=== PATIENT | male | born 1945 | race Caucasian/White ===

== ENCOUNTER 2017-04-20 08:34 | Inpatient (IN) | payer OTHER, BC ==
[~2017-04-20] VITALS: Ht 177.8 cm; Wt 97.5 kg
[~2017-04-20 08:34] MED LIST: ASPIRIN325 PO; BENZONATATE100 MG PO; ENOXAPARIN100 MG/11 SUBQ; FLUCONAZOLE 10100 MG PO; HYDROCODON-ACE1 EAC7 PO; HYDROCODONE-AP1 EAC6 PO; LEVAQUIN 500 M500 M2 PO; LISINOPRIL-HCT1 EAC2 PO; METAMUCIL PAC1 UDPKT PO; NIACIN 500 MG500 M1 PO; PRADAXA150 MG PO; PRADAXA75 MG PO; VANCOMYCIN100 MG/M1 PO
[2017-04-20 08:35] VITALS: BP 101/67
[2017-04-20] MEDS ORDERED: LISINOPRIL20 MG PO (08:45)
[2017-04-20] MEDS ORDERED: NORCO 5-325 TA1 EACH PO (09:12)
[2017-04-20] MEDS ORDERED: FLEXERIL PO (09:17)
[2017-04-20 10:12] VITALS: BP 101/67
[2017-04-20 10:21] LABS: URINE BILIRUBIN NEGATIVE (Negative); URINE BLOOD NEGATIVE (Negative); URINE COLOR YELLOW; URINE GLUCOSE-RANDOM* NEGATIVE (Negative); URINE KETONES NEGATIVE (Negative); URINE NITRITE NEGATIVE (Negative); URINE PROTEIN (DIPSTICK) NEGATIVE (Negative); URINE UROBILINOGEN 0.2 E.U./dl (0.2-1.0)
[2017-04-20 10:26] VITALS: BP 139/82
[2017-04-20 10:36] LABS: ABSOLUTE NEUTROPHILS 4.4 thou/uL (1.4-8.2); BASOPHILS 0.6 % (0.0-2.0); HEMATOCRIT 44.3 % (42.0-52.0); HEMOGLOBIN 15.6 gm/dL (14.0-18.0); LYMPHOCYTES 23.4 % (24.0-44.0); MCHC 35.2 g/dL (28.0-37.0); MCV 93.7 fL (80.0-100.0); MONOCYTES 6.9 % (1.0-8.0); PLATELET COUNT 227 thou/uL (150-400); POLYS 67.1 % (36.0-66.0); RBC 4.73 mil/uL (4.50-6.00); RDW 12.3 % (10.5-14.5); WBC 6.6 thou/uL (4.0-11.0)
[2017-04-20 10:48] LABS: CALCIUM 9.5 mg/dL (8.5-10.1); CREATININE 1.3 mg/dL (0.7-1.3); POTASSIUM 4.3 mmol/L (3.5-5.1)
[2017-04-20 10:52] LABS: MANUAL DIFF NO
[2017-04-20 21:08] VITALS: BP 141/73
[2017-04-21 04:48] VITALS: BP 121/77
[2017-04-21] MEDS ORDERED: PERCOCET PO (08:15)
[2017-04-21] MEDS ORDERED: VALIUM5 MG PO (08:16)
[2017-04-21] MEDS ORDERED: PREDNISONE 10 M10 MG PO (08:17)
[2017-04-21 08:37] VITALS: BP 125/85
[2017-04-21 10:08] VITALS: BP 121/77
[2017-04-21 11:55] VITALS: BP 121/77
== END 2017-04-21 11:10 | disposition home or self-care (01) | DRG 543 ==
LOC: ER 08:34 → EROBS 09:39 → 4N 10:35
PROVIDERS: Emergency Medicine
DX: C79.51 Secondary malignant neoplasm of bone (principal); C34.90 Malignant neoplasm of unspecified part of unspecified bronchus or lung; C79.70 Secondary malignant neoplasm of unspecified adrenal gland; M48.8X6 Other specified spondylopathies, lumbar region; I10 Essential (primary) hypertension; G47.30 Sleep apnea, unspecified; Z87.891 Personal history of nicotine dependence; Z86.711 Personal history of pulmonary embolism; R59.9 Enlarged lymph nodes, unspecified
CPT/HCPCS: 10091

== ENCOUNTER → 2017-04-24 | Outpatient (CLI) | payer OTHER, BC ==
[~2017-04-24] VITALS: Ht 180.3 cm; Wt 96.2 kg
[2017-04-24] VITALS (11 sets, daily range): BP systolic 122–169; BP diastolic 68–111
[~2017-04-24] MED LIST changes: +FLEXERIL PO; +LISINOPRIL20 MG PO; +NORCO 5-325 TA1 EACH PO; +PERCOCET PO; +PREDNISONE 10 M10 MG PO; +VALIUM5 MG PO
--- NOTE | ~2017-04-24 | S ---
[facility] [address] [place] [address] SURGICAL PATH RPT PROCEDURE Name: DAMONBRAD [id number] Admission: 04/24/17 Date of : 49 Discharge: Report #: [id number] Path Case #: [id number] PATHOLOGY REPORT COLLECTION DATE: 04/24/2017 RECEIVED DATE: 04/24/2017 SUBMITTING PHYS: Dr. Teddy Yanes OTHER PHYS: ADDENDUM REPORT (Order Date: 04/30/2017 10:17) ADDENDUM COMMENT: Immunoperoxidase stains for p63 and p40 are both negative. 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 The immunoperoxidase thrombomodulin is focally positive. (SHA:ilana; 04/30/2017) Professional services performed under supervision of [facility] Automotive Engineering Teacher at [address] [place] [address]. Technical services performed by [facility] under supervision of a [facility] Teacher at [address] [place] [address], [address] [place] [address]. ELECTRONICALLY SIGNED BY: Wilbert Cintron M.D. DATE/TIME:04/30/2017 10:57 SPECIMEN(S) RECEIVED: A.L1 mass lumbar * * * * * * * * * * * * FINAL DIAGNOSIS: Bone, "L-1 mass lumbar": - METASTATIC POORLY DIFFERENTIATED NON-SMALL CELL CARCINOMA. COMMENT: Immunoperoxidase stains were performed and reveal the following results: AE1/AE3: positive PSA-P: negative PSA: negative CK7: positive CK20: negative CDX-2: negative S-100: negative CD68: stains histiocytes. TTF1: negative Primaries include lung, upper respiratory and possible lower genitourinary. With a history of lung mass and hilar adenopathy [facility] [address] [place] [address] SURGICAL PATH RPT PROCEDURE Name: BRAD DAMON [facility] [id number] Admission: 04/24/17 Date of : 49 Discharge: Report #: [id number] Path Case #: [id number] findings are compatible with lung. Absence of PSA and PSAP excludes prostate and absence of CDX2 and CK20 makes colon unlikely. Suggest clinical correlation. This case is also reviewed by Dr. Karolyn Flores. Dr. Teddy Yanes was informed of the diagnosis on 04/27/2017 at 1pm Additional immunostains p63, P40 and thrombomodulin are being done to see if the tumor is squamous or adenocarcinoma. (SHA:mgr; 04/26/2017) PATHOLOGIST: Wilbert Cintron M.D. REPORT ELECTRONICALLY SIGNED BY: Wilbert Cintron M.D. DATE/TIME: 04/27/2017 13:25 * * * * * * * * * * * * GROSS PATHOLOGY: The specimen is received in formalin labeled "Brad Juan José, L-1 mass". Received are two needle cores of light grant bone measuring 0.4 and 0.7 cm in length, each measuring 0.1 cm in diameter, admixed with blood coagulum measuring 2.0 x 1.4 x 0.2 cm in aggregate dimensions. The specimen is filtered and entirely submitted in cassette A1, following light decalcification. (CAA; 04/25/2017) CLINICAL HISTORY: None provided INITIAL CPT CODE(S): A; 95488, 22867, 75541, 02101, 29783, 56248, 06048, 24812, 45306, 17296, 74579, 43452, 09021, 32555 Professional services performed by [facility] at [facility] [address], [place] [address] Technical services performed by [facility] at [address] [place] [address], [address], [place] [address]. [facility] [address] [place] [address] PHONE: [phone] DIRECTOR: Landry Jones M.D. * * * END OF REPORT * * *
== END | disposition home or self-care (01) ==
LOC: RAD 08:17
PROVIDERS: Radiology Diagnostic Radiology
DX: C79.51 Secondary malignant neoplasm of bone (principal)

== ENCOUNTER 2017-05-30 13:27 | Inpatient (IN) | payer OTHER, BC ==
[~2017-05-30] VITALS: Ht 180.3 cm; Wt 88.8 kg
[2017-05-30] VITALS (14 sets, daily range): BP systolic 78–147; BP diastolic 50–110
[2017-05-30 13:55] LABS: HEMOGLOBIN 15.3 gm/dL (14.0-18.0); MCH 31.1 pg (26.0-34.0)
[2017-05-30 14:00] LABS: ABG SAMPLE TYPE ARTERIAL; BE(vivo) 1.4 mmol/L (-2 to +3); HCO3 23.7 mmol/L (22.0-26.0); LACTATE 1.79 mmol/L (0.5-2.0); O2(CT) 20.4 mL/dL (15.0-23.0); O2Hb 92.7 % (92.0-98.0); PCO2 31.5 mmHg (35.0-45.0); PO2 67.5 mmHg (80.0-100.0); pH 7.495 (7.360-7.450); tCO2 24.7 mmol/L (24.0-30.0)
[2017-05-30 14:01] LABS: CALCIUM 9.1 mg/dL (8.5-10.1); CREATININE 1.8 mg/dL (0.7-1.3); POTASSIUM 4.6 mmol/L (3.5-5.1)
[2017-05-30 14:01] LABS: STICK SITE L.RADIAL
[2017-05-30 14:09] LABS: HEMATOCRIT 44.2 % (42.0-52.0); MANUAL DIFF YES; MCHC 34.6 g/dL (28.0-37.0); PLATELET COUNT 143 thou/uL (150-400); RBC 4.91 mil/uL (4.50-6.00); RDW 12.1 % (10.5-14.5)
[2017-05-30 14:10] LABS: WBC 0.5 thou/uL (4.0-11.0)
[2017-05-30 15:26] LABS: ABSOLUTE NEUTROPHILS 0.1 thou/uL (1.4-8.2); ANISOCYTOSIS 1+; TOTAL CELL COUNT 50
[2017-05-30 15:27] LABS: POIKILOCYTOSIS SLIGHT
[2017-05-30 17:11] LABS: URINE BILIRUBIN 2+ (Negative); URINE BLOOD TRACE (Negative); URINE GLUCOSE-RANDOM* TRACE (Negative); URINE KETONES TRACE (Negative); URINE LEUKOCYTES-REFLEX NEGATIVE (Negative); URINE PROTEIN (DIPSTICK) 1+ (Negative); URINE SPECIFIC GRAVITY 1.025 (1.003-1.035)
[2017-05-30 17:13] LABS: ICTOTEST (BILI CONFIRMATORY) Positive (Negative); URINE COLOR AMBER
[2017-05-30] MEDS ORDERED: DEXAMETHASONE 44 M1 PO (17:13)
[2017-05-30] MEDS ORDERED: FOLIC ACID1 MG PO (17:13)
[2017-05-30] MEDS ORDERED: CONSTULOSE10 GM/15 M PO (17:13)
[2017-05-30] MEDS ORDERED: ROXICODONE5 M2 PO (17:14)
[2017-05-30] MEDS ORDERED: ONDANSETRON HCL4 M2 PO (17:14)
[2017-05-30] MEDS ORDERED: MS CONTIN15 MG PO (17:15)
[2017-05-30 17:19] LABS: CRYSTALS None Seen /LPF (None Seen); SQUAMOUS 4-10 Moderate /LPF (0-3)
[2017-05-30 17:20] LABS: URINE RBC 0-2 Rare /HPF (0-2)
[2017-05-30 17:21] LABS: HYALINE CASTS 0-3 Few /LPF (None Seen); URINE WBC-REFLEX None Seen /HPF (0-5)
[2017-05-30] MEDS ORDERED: TUMS PO (17:48)
[2017-05-31] VITALS (47 sets, daily range): BP systolic 93–133; BP diastolic 32–107
[2017-05-31 05:39] LABS: MCH 31.5 pg (26.0-34.0); PLATELET COUNT 84 thou/uL (150-400); RBC 4.04 mil/uL (4.50-6.00)
[2017-05-31 05:41] LABS: HEMATOCRIT 35.9 % (42.0-52.0); MCHC 35.4 g/dL (28.0-37.0); RDW 12.1 % (10.5-14.5)
[2017-05-31 05:42] LABS: HEMOGLOBIN 12.7 gm/dL (14.0-18.0); MANUAL DIFF YES
[2017-05-31 05:44] LABS: WBC 0.5 thou/uL (4.0-11.0)
[2017-05-31 05:52] LABS: CALCIUM 8.3 mg/dL (8.5-10.1); CREATININE 1.3 mg/dL (0.7-1.3)
[2017-05-31 10:21] LABS: ABSOLUTE NEUTROPHILS 0.2 thou/uL (1.4-8.2); TOTAL CELL COUNT 100
[2017-06-01] VITALS (28 sets, daily range): BP systolic 93–136; BP diastolic 52–84
[2017-06-01 09:09] LABS: HEMATOCRIT 32.8 % (42.0-52.0); HEMOGLOBIN 11.4 gm/dL (14.0-18.0); MCH 31.7 pg (26.0-34.0); MCHC 34.9 g/dL (28.0-37.0); MCV 91.1 fL (80.0-100.0); RBC 3.6 mil/uL (4.50-6.00); RDW 12.2 % (10.5-14.5)
[2017-06-01 09:11] LABS: WBC 0.6 thou/uL (4.0-11.0)
[2017-06-02 04:02] VITALS: BP 106/67
[2017-06-02 07:37] VITALS: BP 110/74
[2017-06-02 09:27] LABS: MCV 91.3 fL (80.0-100.0)
[2017-06-02 09:29] LABS: HEMATOCRIT 31.8 % (42.0-52.0); MCH 31.5 pg (26.0-34.0); MCHC 34.5 g/dL (28.0-37.0); RBC 3.48 mil/uL (4.50-6.00); RDW 12.5 % (10.5-14.5)
[2017-06-02 09:32] LABS: MANUAL DIFF YES
[2017-06-02 11:29] LABS: TOTAL CELL COUNT 100
[2017-06-02 11:30] LABS: ABSOLUTE NEUTROPHILS 0.6 thou/uL (1.4-8.2); ANISOCYTOSIS 1+
[2017-06-02 11:31] LABS: PLATELET COUNT 40 thou/uL (150-400)
[2017-06-02 16:00] VITALS: BP 100/64
[2017-06-02 19:23] VITALS: BP 99/62
[2017-06-03 02:49] VITALS: BP 128/78
[2017-06-03 08:24] VITALS: BP 118/70
[2017-06-03 09:34] LABS: HEMOGLOBIN 10.7 gm/dL (14.0-18.0); MCH 31.3 pg (26.0-34.0); RDW 12.3 % (10.5-14.5)
[2017-06-03 09:36] LABS: HEMATOCRIT 31.2 % (42.0-52.0); MCHC 34.4 g/dL (28.0-37.0); RBC 3.43 mil/uL (4.50-6.00)
[2017-06-03 09:38] LABS: MANUAL DIFF YES
[2017-06-03 09:39] LABS: WBC 1.5 thou/uL (4.0-11.0)
[2017-06-03 10:24] LABS: ATYPICAL LYMPHS 1 %; TOTAL CELL COUNT 100
[2017-06-03 10:26] LABS: ANISOCYTOSIS 1+
[2017-06-03 10:29] LABS: PLATELET COUNT 32 thou/uL (150-400)
[2017-06-03 11:45] VITALS: BP 107/75
[2017-06-03 15:46] VITALS: BP 121/81
[2017-06-03 19:04] VITALS: BP 117/77
[2017-06-04 03:05] VITALS: BP 98/58
[2017-06-04 06:54] LABS: HEMOGLOBIN 10.7 gm/dL (14.0-18.0); RBC 3.42 mil/uL (4.50-6.00)
[2017-06-04 06:56] LABS: HEMATOCRIT 30.8 % (42.0-52.0); MCH 31.4 pg (26.0-34.0); MCHC 34.9 g/dL (28.0-37.0); PLATELET COUNT 27 thou/uL (150-400); RDW 12.3 % (10.5-14.5)
[2017-06-04 07:07] LABS: MANUAL DIFF YES
[2017-06-04 07:45] VITALS: BP 125/83
[2017-06-04 09:49] LABS: ABSOLUTE NEUTROPHILS 1.1 thou/uL (1.4-8.2); METAMYELOCYTES 2 %; MYELOCYTES 1 %; NUCLEATED RBCS 1 /100WBC; TOTAL CELL COUNT 100
[2017-06-04 09:50] LABS: ANISOCYTOSIS 2+; PLATELET ESTIMATE MARKEDLY DECREASED; POLYCHROMASIA 1+; TOXIC GRANULATION 3+
[2017-06-04 15:03] VITALS: BP 125/83
== END 2017-06-04 16:46 | disposition home or self-care (01) | DRG 180 ==
LOC: ER 13:27 → EROBS 16:08 → ICU 16:08 → 3W 06-01 20:43 → ENTRNSPT 06-04 15:55 → EDTRNSPTSTS 06-04 15:57 → 3W 06-04 16:46
PROVIDERS: Emergency Medicine; Family Medicine; Internal Medicine Hematology & Oncology
DX: C34.90 Malignant neoplasm of unspecified part of unspecified bronchus or lung (principal); N17.0 Acute kidney failure with tubular necrosis; I10 Essential (primary) hypertension; E86.0 Dehydration; D70.9 Neutropenia, unspecified; R50.81 Fever presenting with conditions classified elsewhere; D64.81 Anemia due to antineoplastic chemotherapy; Z79.899 Other long term (current) drug therapy; Z87.891 Personal history of nicotine dependence; Z86.711 Personal history of pulmonary embolism
CPT/HCPCS: 10078; 10779

== ENCOUNTER → 2018-08-05 | Outpatient (CLI) | payer OTHER, BC ==
[~2018-08-05] MED LIST changes: +CONSTULOSE10 GM/15 M PO; +DEXAMETHASONE 44 M1 PO; +FOLIC ACID1 MG PO; +MS CONTIN15 MG PO; +ONDANSETRON HCL4 M2 PO; +ROXICODONE5 M2 PO; +TUMS PO
[2018-08-05 07:43] LABS: CREATININE 1.3 mg/dL (0.7-1.3)
== END ==
LOC: CAT 06:37
PROVIDERS: Surgery
DX: I71.4 Abdominal aortic aneurysm, without rupture (principal); I70.0 Atherosclerosis of aorta; K56.609 Unspecified intestinal obstruction, unspecified as to partial versus complete obstruction; R19.5 Other fecal abnormalities; M47.816 Spondylosis without myelopathy or radiculopathy, lumbar region

== ENCOUNTER 2018-08-28 05:47 | Inpatient (IN) | payer OTHER, BC ==
[~2018-08-28] VITALS: Ht 180.3 cm; Wt 81.2 kg
--- NOTE | ~2018-08-28 | HC ---
[facility] [place] [address] CONSULTATION Name: JAMAR DAMON Room #: 419-P [facility] IN .R.#: [id number] Admission: 08/28/18 Attend Phys: Anay Tapia MD, Discharge: Date of : 49 Report #: [id number] THIS REPORT FOR: //name// CC: Anay Espinal Yanes DATE OF SERVICE: 09/02/2018 HISTORY OF PRESENT ILLNESS: The patient is a 73-year-old white male who was admitted with a small-bowel obstruction and underwent exploratory laparotomy, lysis of adhesions. He has been noted to have confusion postoperatively, likely due to pain medications. He did receive a dose of Haldol for agitation. He has also had some renal insufficiency. Appears to have toxic metabolic encephalopathy. notes his cognition is definitely different from premorbid status. He also has had problems with replacement of his NG tube, which is currently to low intermittent suction. We are seeing him in rehabilitation medicine consultation. PAST MEDICAL HISTORY: Includes history of lung cancer stage IV with prior chemo and radiation. 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 He has had exploratory laparotomy with small intestine repaired 3 times per report. He has had bilateral PEs in 2016, IVC filter placement, history of MRSA and C. diff 05/21/2018. MEDICATIONS: Please see the full medication listing. SOCIAL HISTORY: Lives in a house with , 2 steps in. Did not typically utilize gait aids premorbidly. They are both retired. REVIEW OF SYSTEMS: Did not offer any current complaints of chest pain, shortness of breath or abdominal discomfort. No focal extremity pain complaints. PHYSICAL EXAMINATION: GENERAL: He is a 73-year-old slender white male, in no obvious distress. VITAL SIGNS: Last recorded temperature 98.7, pulse 86, respirations 18, blood pressure 127/67. He is alert. HEENT: NG tube is in place. Facies appeared to be symmetric. NEUROLOGIC: He knew the place, but was incorrect regarding to the year and was unable to even name the month and would tend to perseverate on the incorrect year. He will follow basic 1 step commands. EXTREMITIES: Functional range of motion of the upper extremities without obvious focal weakness. Would grade his strength at a 4-/5. Lower extremities functional range of motion, strength is grade 4-/5. [facility] [address] [place] [address] CONSULTATION Name: JAMAR DAMON Jackson Room #: 419-P [facility] IN [facility]#: [id number] Admission: 08/28/18 Attend Phys: Anay Tapia MD, Discharge: Date of : 49 Report #: [id number] ASSESSMENT: A 73-year-old white male with the following problem list: 1. Toxic metabolic encephalopathy. 2. Small-bowel obstruction, status post exploratory laparotomy with lysis of adhesions. 3. Current use of NG tube at low intermittent suction. He is currently n.p.o. 4. Postop anemia warranting transfusion with 1 unit packed red blood cells. 5. History of stage IV lung carcinoma with prior chemo and radiation. 6. Past history of tobacco abuse. PLAN: Do not typically take patients up to the rehab [facility] that are n.p.o. on NG tube to suction. We will see how he does further with therapies and consider a short acute inpatient rehabilitation stay. If warranted, depending upon his therapy needs. At this point, we are going to follow along with you. By: [id number] [id number] Sidney Wheat MD /nt
[~2018-08-28 05:47] MED LIST changes: +CELEXA20 MG PO; +CENTRUM SILVER1 EAC2 PO; +PROBIOTIC1 EAC1 PO; +REGLAN 10 MG TA10 MG PO; +STOOL SOFTENER100 MG PO
[2018-08-28 09:09] LABS: HEMATOCRIT 37.5 % (42.0-52.0); HEMOGLOBIN 12.5 gm/dL (14.0-18.0)
[2018-08-28 09:30] VITALS: BP 123/76
[2018-08-28 15:53] LABS: HEMATOCRIT 30.1 % (42.0-52.0)
[2018-08-28 15:56] LABS: HEMOGLOBIN 10.5 gm/dL (14.0-18.0)
[2018-08-28 20:15] VITALS: BP 103/54
--- NOTE | 2018-08-28 20:40 | NUR ---
PT ADMITTED POST OP INTO 421 AT AROUND 1950HRS. PT IS ALERT AND ORIENTED. PREVENA WOUND VAC TO ABDOMEN. PT HAS SCDS IN PLACE. FENTANYL RESIDENTIAL SALES PUMP INITIATED. PT RATES ABDMINAL PAIN AT 7/10. APNEA MONITOR IN PLACE. PT SATTING AT 100% ON 3L/NC. NG TO LIS THROUGH THE L NARE. IVF INFUSING THROUGH THE R CHEST PORT. SPOUSE BY BEDSIE AND SUPPORTIVE. PT ABLE TO ANSWER ORIENTION QUESTIONS.NO FURTHER CONCERNS AT THIS POINT.WILL CONTINUE WITH POC TILL EOS.
[2018-08-28 20:45] VITALS: BP 91/55
[2018-08-28 21:13] VITALS: BP 106/63
[2018-08-28 22:15] VITALS: BP 119/89
[2018-08-28 23:15] VITALS: BP 111/61
[2018-08-29 03:41] VITALS: BP 102/61
[2018-08-29 05:48] LABS: HEMATOCRIT 29.3 % (42.0-52.0); HEMOGLOBIN 9.7 gm/dL (14.0-18.0); MCH 32.8 pg (26.0-34.0); MCHC 33.3 g/dL (28.0-37.0); MCV 98.6 fL (80.0-100.0); RBC 2.97 mil/uL (4.50-6.00); RDW 13.8 % (10.5-14.5); WBC 2.7 thou/uL (4.0-11.0)
[2018-08-29 06:15] LABS: CALCIUM 7.9 mg/dL (8.5-10.1); CREATININE 1.5 mg/dL (0.7-1.3); POTASSIUM 4.9 mmol/L (3.5-5.1)
[2018-08-29 07:10] VITALS: BP 104/52
--- NOTE | 2018-08-29 15:50 | NUR ---
cm received phone call from laney with [facility] home health, pt was on service with [facility] prior to hospital, will like updates and can be reached at [phone].
--- NOTE | 2018-08-29 15:53 | NUR ---
PT ADMITTED RELATED TO OPEN RELEASE OF BOWEL OBSTRUCTION, LYSIS OF ADHESIONS. CM REVIEWED CHART AND SPOKE WITH CARE TEAM. CM MET WITH PT AT BEDSIDE THIS DAY. PT INDICATED HE LIVES IN A HOUSE WITH HIS SPOUSE WITH 2 STEPS TO ENTER AND NO STEPS INSIDE. PT INDICATED HE HAD HH IN THE PAST BUT COULDN'T RECALL PROVIDER. HE INDICATED HE USED A WHEELCHAIR AND A FWW TO ASSIST WITH MOBILITY SEWER PIPE CLEANER. PT INDICATED HE PLANS TO RETURN HOME ONCE MEDICALLY STABLE. CM CALLED PT'S SPOUSE DRAGAN AND SHE INDICATED THAT PT HAS HAD SOME COGNITIVE ISSUES SINCE CHEMO AND SURGERY. SHE INDICATED THAT PT HAD BEEN INDEPENDENT WITH GAIT AND ADLS SEWER PIPE CLEANER BUT THAT THEY HAVE A FWW SHOULD PT NEED IT. SHE INDICATED [facility] HAD USED [facility] BUT THAT TEODORA WITH [facility] HAD CALLED THEM AND SHE WAS AGREEABLE TO USE [facility] UPON DC IF INDICATED. CM TO FOLLOW INDICATED WITH DC PLANNING.
[2018-08-29 16:11] VITALS: BP 90/54
[2018-08-29 19:17] VITALS: BP 111/64
--- NOTE | 2018-08-29 20:17 | NUR ---
ASSUMED CARE OF PT AT 11:00. AGREE WITH PREVIOUS ASSESSMENT. PT ALERT, ORIENTED TO SELF AND SITUATION ONLY. MILD DEMENTIA, FORGETFULNESS AND CONFUSION NOTED. S/P SBO. ABD INCISION, PREVENA IN PLACE. NG TUBE, LIS, 650 ML DARK GREEN OUTPUT. NEGRON CATHETER IN PLACE, STRAW YELLOW 250 ML. TRAFFIC CIRCUIT ENGINEER PUMP IN USE, APNEA MONITOR AT BEDSIDE. INSTRUCTED TO HOLD PO MEDS UNTIL TOMORROW DUE TO MODERATE NG OUTPUT BY DR. MATHIS. FAMILY AT BEDSIDE THROUGHOUT THE DAY. PT IN STABLE CONDITION. END OF SHIFT.
[2018-08-29 23:55] VITALS: BP 97/64
[2018-08-30 03:55] VITALS: BP 100/58
--- NOTE | 2018-08-30 05:07 | NUR ---
ASSUMED CARE AT 1900, ASSESSMENT COMPLETED. PT C/O SOME PAIN, RE-EDUCATED PT ON HOW TO UTILIZE NUTRITION MANAGER PUMP. DENIED NAUSEA OR SOB. C/O PHLEGM IN THROAT HE CAN'T CLEAR, LIKELY R/T NG TUBE. NG HAS THICK, SLIMY, DARK GREEN OUTPUT OVERNIGHT. MIDLINE ABD INCISION INTACT; FOUND CHARGING CORD FOR PROVENA AND PLUGGED IN AFTER THE BATTERY WENT . NEGRON DRAINING DARK YELLOW URINE. FORGETFUL AND MILDLY CONFUSED, THOUGHT HE WAS ON AN AIRPLANE OR THAT HE HIS WAS SUPPOSED TO BE PICKING HIM UP. IV FLUIDS INFUSING. CAPNOGRAPHY AND PULSE OX ON OVERNIGHT WITH 2L NC. WILL D/C NEGRON THIS AM. NO OTHER CONCERNS, WILL CONTINUE TO MONITOR.
[2018-08-30 05:37] LABS: ABSOLUTE NEUTROPHILS 4.4 thou/uL (1.4-8.2); BASOPHILS 0.2 % (0.0-2.0); EOSINOPHILS 0.2 % (0.0-3.0); LYMPHOCYTES 7.2 % (24.0-44.0); MCH 32.9 pg (26.0-34.0); MCHC 33.6 g/dL (28.0-37.0); MONOCYTES 11.4 % (1.0-8.0); PLATELET COUNT 184 thou/uL (150-400); RBC 2.45 mil/uL (4.50-6.00); RDW 13.7 % (10.5-14.5); WBC 5.5 thou/uL (4.0-11.0)
[2018-08-30 05:39] LABS: CALCIUM 8.1 mg/dL (8.5-10.1); CREATININE 1.7 mg/dL (0.7-1.3)
[2018-08-30 06:06] LABS: POTASSIUM 5.3 mmol/L (3.5-5.1)
[2018-08-30 07:10] VITALS: BP 99/52
--- NOTE | 2018-08-30 08:19 | NUR ---
ASSESMENT COMPLETED. VSS. ORIENTED TO SELF. VERY CONFUSED. NG TO LIS. O2 IN PLACE. SCDS ON. PREVENA WOUND VAC INTACT. PT RESTING IN BED AT THIS TIME. WILL CONT. TO MONITOR.
--- NOTE | 2018-08-30 09:24 | NUR ---
ORGANIC CHEMISTRY TEACHER DC'D ORDERED.
--- NOTE | 2018-08-30 16:50 | NUR ---
CM MET WITH PT, SON AND SPOUSE THIS AFTERNOON. THEY ARE RECEPTIVE TO 5N CONSULT. CM NOTIFIED LIAISON. AWAITING ASSESSMENT.
[2018-08-30 20:25] VITALS: BP 88/43
--- NOTE | 2018-08-31 03:55 | NUR ---
PT HAS BEEN CONFUSED SINCE SHIFT STARTED.PT THOUGHT THAT HE WAS IN A CRUISE WITH ,NEEDED CONSTANT REDIRECTION PT WAS PULLING ON HIS NG TUBE AND PREVENA WOUND VAC.NG TUBE TO L NARE WITH GREEN OUTPUT.SCD'S TO PEREZ LOWER EXT. DSRG ON HIS ABD C/D/I.URINAL AT BEDSIDE.IVF INFUSING ORDERED.C/O PAIN,MANAGED WITH IV PAIN MED.PT RESTING ON HIS BED AT THIS TIME.CALL LIGHT WITHIN REACH.
[2018-08-31 05:29] VITALS: BP 98/57
[2018-08-31 06:05] LABS: ABSOLUTE NEUTROPHILS 5.2 thou/uL (1.4-8.2); POLYS 86.7 % (36.0-66.0)
[2018-08-31 06:07] LABS: BASOPHILS 0.1 % (0.0-2.0); EOSINOPHILS 0.1 % (0.0-3.0); HEMOGLOBIN 6.6 gm/dL (14.0-18.0); LYMPHOCYTES 5.3 % (24.0-44.0); MCH 34.2 pg (26.0-34.0); MCHC 35.1 g/dL (28.0-37.0); MCV 97.2 fL (80.0-100.0); MONOCYTES 7.8 % (1.0-8.0); PLATELET COUNT 156 thou/uL (150-400); RBC 1.94 mil/uL (4.50-6.00); RDW 13.7 % (10.5-14.5)
[2018-08-31 06:13] LABS: CALCIUM 8.3 mg/dL (8.5-10.1); CREATININE 1.4 mg/dL (0.7-1.3); POTASSIUM 4.1 mmol/L (3.5-5.1)
[2018-08-31 06:22] LABS: HEMATOCRIT 18.9 % (42.0-52.0)
[2018-08-31 07:15] VITALS: BP 98/59
--- NOTE | 2018-08-31 09:30 | NUR ---
spoke with patient's to get verbal consent for 1 unit of blood to be given patient has confusion at times. patients yamilka lutz gave verbal permission to this nurse and another nurse from unit at 07:57
[2018-08-31 10:39] VITALS: BP 105/62; BP 111/71
[2018-08-31 16:15] VITALS: BP 113/74; BP 98/59
[2018-08-31 16:23] VITALS: BP 98/59
--- NOTE | 2018-08-31 19:26 | NUR ---
BLOOD INFUSING HOURLY V.S 11:45 98.6 18 88 110/72 O2 SAT 99% RA
[2018-08-31 19:40] VITALS: BP 116/52
--- NOTE | 2018-09-01 03:57 | NUR ---
PT LYING IN BED. VOIDNG PER URINAL. FENTANYL PROVIDING PAIN RELIEF. RESTING COMFORTABLY. NO NEEDS VOICED. CALL LIGHT WITHIN REACH. WILL CONTINUE TO PROVIDE FREQUENT OBSERVATION.
[2018-09-01 07:30] VITALS: BP 101/61
[2018-09-01 08:36] LABS: HEMATOCRIT 21.1 % (42.0-52.0); HEMOGLOBIN 7.4 gm/dL (14.0-18.0); MCH 32.9 pg (26.0-34.0); MCHC 34.8 g/dL (28.0-37.0); MCV 94.5 fL (80.0-100.0); RBC 2.23 mil/uL (4.50-6.00); RDW 14.7 % (10.5-14.5); WBC 6.2 thou/uL (4.0-11.0)
[2018-09-01 16:15] VITALS: BP 116/66
[2018-09-01 19:16] VITALS: BP 101/62
[2018-09-02 03:52] VITALS: BP 130/72
--- NOTE | 2018-09-02 03:53 | NUR ---
ASSUMED PT CARE 1899. PT ALERT TO SLEF. PT CONFUSED AND IMPULSIVE. REPEATEDLY ATTEMPTS TO GET OUT OG BED, PULLING AT NG TUBE, AND WOUND VAC. WOUND VAC IN PLACE. NG TUBE FLUSHED AND ADVANCED A FEW INCHES BACK INTO PLACE, TUBING REPLACED. CHEST PORT DRESSING C/D/I, FLUSHES AND ASPIRATES FOR BLOOD. FALL RISK PRECAUTIONS IN PLACE, PT CLOSE TO NURSES STATION. WILL CONTINUE POC UNTIL EOS.
[2018-09-02 07:10] VITALS: BP 127/67
--- NOTE | 2018-09-02 09:25 | NUR ---
ASSESMENT COMPLETED. VSS. OX1. CONFUSED/FORGETFUL AT TIMES. C/O THROAT PAIN. NO NOTED SOA. NO NV. NG TO LIS- RETAPED. PREVENA WOUND VAC INTACT. PT AMBULATING IN HALLWAY WITH PHYSICAL THERAPY AT THIS TIME. WILL CONT. TO MONITOR.
--- NOTE | 2018-09-02 10:03 | NUR ---
C/O PAIN AFTER WALKING WITH PHYSICAL THERAPY. PAIN MEDS GIVEN ORDERED. FAMILY AT BEDSIDE. PT RESTING IN CHAIR AT THIS TIME. WILL CONT. TO MONITOR.
--- NOTE | 2018-09-02 13:07 | PATH ---
[facility] [address] [address] PATHOLOGY RPT PROCEDURE Name: BRAD CAN Room #: 419-P ADM IN M.R.#: [id number] Admission: 08/28/18 Date of : 49 Discharge: Report #: [id number] Path Case #: [id number] [facility] Accession Number: [id number] . 01 Material submitted: . MID SMALL BOWEL WITH ADHESIONS . 01 Clinical history: . Small bowel obstruction . 02 Diagnosis: Small bowel, mid small bowel with adhesions, resection: - Marked congestion and extensive fibrous adhesions on the serosal surface, history of small bowel obstruction. - Focal early ischemic changes identified in the serosa. - Anastomotic line identified. - Margins of resection viable. (IUV/db; 08/30/2018) LBQ/08/30/2018 . 02 Electronically signed: . Delfina Chino MD, Pathologist NPI- [id number] . 01 Gross description: . The specimen is received in formalin, labeled "Brad Can, mid small bowel with adhesions". Received is a segment serpiginous small bowel, which is predominantly adhesed onto itself, measuring 60.2 cm in length by 2.9 cm in diameter. Both margins are stapled closed. The serosal surface is pink-grant to dusky pink-green appearance with a large amount of overlying adhesions. The attached mesenteric fat measures up to 4.2 cm in thickness. The specimen is opened along the antimesenteric line to reveal light grant to pink-grant mucosa with normal architectural folds throughout. Near one margin, there is an anastomotic line identified measuring 4.5 cm in length. The specimen is submitted representatively as follows: . A1-A2 both margins A3-A5 compliance representative dealer sections from adhesed areas A6 compliance representative dealer section through anastomotic line A7 uninvolved mucosa. (CAA; 08/29/2018) QAC/QAC . 02 Pathologist provided ICD-10: K56.609 . 02 [place] [address] PATHOLOGY RPT PROCEDURE Name: BRAD CAN Room #: 419-P [facility] IN M.R.#: [id number] Admission: 08/28/18 Date of : 49 Discharge: Report #: [id number] Path Case #: [id number] Specimen Comment: A courtesy copy of this report has been sent to Specimen Comment: [phone], , , . Specimen Comment: Report sent to ,DR HAYES,DR SWAN Specimen Comment: DR MATHIS Specimen Comment: A duplicate report has been generated due to demographic updates. Performed at: [address], [place] [id number] MD Chaim Kan MD Phone: [phone] Performed at: [address] [facility] [id number] MD Delfina Chino MD Phone: [phone]
[2018-09-02 13:34] LABS: HEMATOCRIT 25.3 % (42.0-52.0); HEMOGLOBIN 8.8 gm/dL (14.0-18.0); MCH 33.1 pg (26.0-34.0); MCHC 34.6 g/dL (28.0-37.0); MCV 95.6 fL (80.0-100.0); RBC 2.65 mil/uL (4.50-6.00); RDW 14.8 % (10.5-14.5)
[2018-09-02 13:49] LABS: ALBUMIN 2.7 g/dL (3.4-5.0); CALCIUM 9.5 mg/dL (8.5-10.1); CREATININE 1.3 mg/dL (0.7-1.3); POTASSIUM 3.9 mmol/L (3.5-5.1); TOTAL BILIRUBIN 1.9 mg/dL (<0.1-1.0); TOTAL PROTEIN 6.2 g/dL (6.4-8.2)
[2018-09-02 16:30] VITALS: BP 128/49
--- NOTE | 2018-09-02 17:02 | NUR ---
PT TOLERATING CLEARS. NO SIGNS OF NAUSEA. NG DC'D ORDERED. PT RESTING IN BED AT THIS TIME.
[2018-09-02 20:18] VITALS: BP 114/75
[2018-09-03 04:31] VITALS: BP 135/89
[2018-09-03 07:35] VITALS: BP 113/75
--- NOTE | 2018-09-03 07:52 | NUR ---
shift summary;pt was mostly confused and impulsive. Given Po pain meds. afebrile.Fluids thro R chest Port.Prevena wound vac in place. abdomen slightly distended,bowel sounds present. Pt denies any nausea.
[2018-09-03 09:46] LABS: HEMOGLOBIN 8.4 gm/dL (14.0-18.0); MCH 33.2 pg (26.0-34.0); MCHC 35.1 g/dL (28.0-37.0); MCV 94.8 fL (80.0-100.0); RBC 2.54 mil/uL (4.50-6.00); RDW 14.8 % (10.5-14.5); WBC 6.7 thou/uL (4.0-11.0)
[2018-09-03 09:58] LABS: CALCIUM 9.1 mg/dL (8.5-10.1); CREATININE 1.2 mg/dL (0.7-1.3)
[2018-09-03 11:42] LABS: URINE BLOOD NEGATIVE (Negative); URINE CLARITY CLEAR; URINE GLUCOSE-RANDOM* NEGATIVE (Negative); URINE KETONES NEGATIVE (Negative); URINE LEUKOCYTES-REFLEX NEGATIVE (Negative); URINE NITRITE-REFLEX NEGATIVE (Negative); URINE PROTEIN (DIPSTICK) NEGATIVE (Negative)
[2018-09-03 11:44] LABS: URINE COLOR DK YELLOW
[2018-09-03 11:45] LABS: ICTOTEST (BILI CONFIRMATORY) Negative (Negative); URINE BILIRUBIN NEGATIVE (Negative)
--- NOTE | 2018-09-03 12:01 | NUR ---
ASSUMED CARE THIS AM, SHIFT ASSESSMENT DONE, MEDS GIVEN. REPORTED PAIN, PRN PAIN MEDS GIVEN. PRAVENA DRESSING C/D/I TO MID ABOEN. ON IV FLUIDS. WILL CONTINUE TO ASSESS AND ASSIST WITH ADLs NEEDED.
--- NOTE | 2018-09-03 14:21 | NUR ---
CASE DISCUSSED WITH [facility] NURSE PRACTIONER. ANTICIPATE PT MAY BE READY FOR TRANSFER TO IN A DAY OR TWO. FOLLOWING TO ASSIST WITH DC PLANNING.
[2018-09-03 14:45] VITALS: BP 112/63
--- NOTE | 2018-09-03 14:50 | NUR ---
PT ADMITTED FOR BOWEL OBSTRUCTION. PT HAD BOWEL MOVEMENT 09/02, BUT NO BOWEL MOVEMENT TODAY 09/03. WOUND VAC IS DRY AND INTACT. PT MOVED TO CHAIR. RECEIVED CHEST XRAY AND STOOD FOR THAT. PT HAD NONPRODUCTIVE COUGH BUT LATER ON ABLE TO EXPECTORATE LIGHT GREEN MUCUS BY COUGHING. PT EXPRESSED PAIN WHILE COUGHING. FAMILY ARRIVED AROUND LUNCH TIME, THEY ARE VERY SUPPORTIVE. PT CONFUSION IS NOT BASELINE ACCORDING TO . CONFUSION HAS IMPROVED SLIGHTLY FROM THIS MORNING, BUT STILL MAKING OUT OF CONTEXT COMMENTS.
--- NOTE | 2018-09-03 15:28 | NUR ---
I have reviewed and concur with student documentation.
[2018-09-03 19:34] VITALS: BP 106/59
--- NOTE | 2018-09-04 02:59 | NUR ---
PT WITH MILD PAIN TO ABDOMEN AT THE SURGERY SITE, HYDROCODONE GIVEN X 1 WITH RELIEF. PREVENA WOUND VAC IN PLACE.PT TOLERATING CLEAR LIQUIDS,DENIES NAUSEA.USES URINAL, DARK YELLOW URINE NOTED. PLACED ON 02/2L/NC AT BEDTIME FOR COMFORT.IVF INFUSING VIA R CHEST PORT. PT ENC TO USE I/S AND HE IS COOPERATIVE.
[2018-09-04 05:12] VITALS: BP 104/58
[2018-09-04 07:25] VITALS: BP 114/64
[2018-09-04] MEDS ORDERED: ALBUTEROL2.5 MG/0.5 INH (07:37)
[2018-09-04] MEDS ORDERED: HYDROCODON-ACE1 EAC7 PO (07:37)
--- NOTE | 2018-09-04 08:42 | NUR ---
RECEIVED PT APPROX 0700. PLEASANTLY CONFUSED. PAIN MANAGED BY MEDS ORDERED. NO NOTED SOA. NO NV. UP WITH STAND BY. PT UP IN CHAIR AT THIS TIME. PREVENA IN PLACE. CHAIR ALARM ON. PLANS TO DC TO REHAB TODAY. WILL CONT. TO MONITOR.
--- NOTE | 2018-09-04 09:01 | O ---
[facility] [place] [place] [address] OPERATIVE REPORT Name: DAMONJAMAR Room #: 419-P [facility] IN M.R.#: [id number] Admission: 08/28/18 Attend Phys: Anay Tapia MD, Discharge: Date of : 49 Report #: [id number] THIS REPORT FOR: //name// CC: Anay Beasleyleona Yanes DATE OF SERVICE: 08/28/2018 PREOPERATIVE DIAGNOSES: 1. Chronic partial small-bowel obstruction. 2. Suspected intra-abdominal adhesions. POSTOPERATIVE DIAGNOSES: 1. Chronic partial small bowel obstructions. 2. Dense and significant intra-abdominal adhesions. PROCEDURES PERFORMED: 1. Exploratory laparotomy with extensive lysis of adhesions lasting greater than 3-1/2 hours. 2. Segmental small bowel resection with stapled reanastomosis. 3. Placement of a topical wound VAC (Prevena) device. 4. This is a modifier 22 procedure for extreme difficulty of the procedure secondary to the dense desmoplastic reaction and interloop adhesions necessitating a nearly 4 hour lysis of adhesions and segmental small bowel resection to alleviate his obstruction. SURGEON: Anay Tapia MD CHOIR DIRECTOR: GRANT Perkins SECOND HANDBAG PARTS CUTTER: Kirill Rincon DO THIRD HANDBAG PARTS CUTTER: Sourav Thomason MD ANESTHESIA: General endotracheal anesthesia. ESTIMATED BLOOD LOSS: Minimal (less than 200 mL). COMPLICATIONS: None appreciated. SPECIMENS: Segment of small bowel to pathology. INDICATIONS: The patient is a 73-year-old male who is well known to me as he underwent an uncomplicated laparoscopic sigmoid colectomy several years ago. Unfortunately, in the early postoperative period, he developed innumerable pulmonary emboli requiring therapeutic anticoagulation, which caused bleeding [facility] [address] [place] [address] OPERATIVE REPORT Name: DAMONJAMAR Room #: 419-P [facility] IN .R.#: [id number] Admission: 08/28/18 Attend Phys: Anay Tapia MD, Discharge: Date of : 49 Report #: [id number] into his abdomen from raw surfaces from the surgical procedure the day prior. The patient did develop a complete bowel obstruction that required exploration via right paramedian incision nearly 2-3 weeks postoperatively with a segmental small bowel resection at that time. Since then, the patient has done well; however, over the recent past has had intermittent bouts of extreme nausea and vomiting with intolerance to p.o. intake. The patient has undergone workup with a CT scan showing a near complete obstruction with just a trickle of contrast passing into the colon. As such and due to his ongoing intermittent symptoms that are worsening as of late, indication was for exploration as delineated above. DESCRIPTION OF PROCEDURE: After explaining the risks, benefits and alternatives of the procedure with the patient in detail in the preoperative holding area and obtaining written consent, the patient was brought to the operating room and placed supine on the operating room table. After conducting a thorough timeout procedure verifying correct patient and procedure, the patient was given general endotracheal anesthesia. Once adequate anesthesia was obtained, his SCDs were hooked up to pneumatic compression device. He was given a preoperative dose of antibiotics in line with the SCIP protocol. The patient's abdomen was prepped and draped in standard surgical sterile fashion. A #10 bladed scalpel was used to create a longitudinal incision in the right paramedian location following his prior incision site ellipsing out his prior scar as it was significantly contracted and unsightly. This also caused significant discomfort for him preoperatively. Electrocautery was used to excise the scar, which was then passed off the field. Electrocautery was then used to dissect down through subcutaneous tissues to arrive upon the level of the fascia, which was scored vertically and a finger was placed in the abdomen to assist with opening of the fascial layer. There were significant adhesions to the posterior aspect of the anterior abdominal wall and necessitated us increasing the size of the incision in both cranial and caudal directions. Ultimately, I was able to enter into the abdomen and began taking down adhesions that ultimately lasted greater than 3.5 hours and incorporated both Metzenbaum scissor and electrocautery dissection. The patient's scar was so intense it was one of the more significant desmoplastic reactions I have seen in the recent past. I was ultimately able to dissect free all loops of bowel except for one matted clump in the central small bowel distribution that was impossible to discern one loop of small bowel from another. We dissected in the proximal small bowel from the ligament of Treitz distally, which once taking down all adhesions was healthy. The distal small bowel as well was healthy as was the entire colon. We ultimately made the decision to resect the central portion of matted loops of small bowel using the ELVER blue load 75 mm stapler to transect on either side. The EnSeal X1 device was used to transect mesentery and this was passed off the field as specimen. We now aligned the segments of small bowel in a gjcg-po-iguo functional end-to-end fashion and placed a single suture of 3-0 PDS in the antimesenteric aspect to hold them in alignment. The antimesenteric corner of the staple line was removed with curved Neal scissors and another firing of the ELVER blue load [address] [address] OPERATIVE REPORT Name: JAMAR DAMON Room #: 419-P [facility] IN [facility].#: [id number] Admission: 08/28/18 Attend Phys: Anay Tapia MD, Discharge: Date of : 49 Report #: [id number] mm stapler was carried out by passing each limb of the stapler down the enterotomies, clamping and firing to create the anastomosis. Allis clamps were used to elevate the common enterotomy, which was then closed using a TX blue load 60 stapler. A single suture of 3-0 PDS was placed in the crotch of the staple line to act as an anti-tension stitch and the TX staple line was oversewn using several sutures of 3-0 PDS in interrupted Lembert fashion. Digital finger palpation of the anastomosis showed it to be widely patent. The dilated proximal obstructed loops of small bowel already began to decompress with traversing fluid past the anastomosis into the distal small bowel. Measurement of the small bowel showed nearly 150 cm remaining. The abdomen was copiously irrigated and the irrigant ran clear throughout. I then closed the midline fascial wound using looped #1 PDS in standard running fashion. Skin was irrigated and closed with skin ryanne. A topical Prevena wound VAC device was then placed overlying the abdominal wound. At the end of the procedure, all instrument, needle and sponge counts were correct. The patient tolerated the lengthy procedure without incident where he was awakened in the operating room and transitioned to the recovery room in stable condition with no apparent complications. <ELECTRONICALLY SIGNED> By: Anay Tapia MD, FACS 09/04/18900 [id number] Anay Tapia MD, FACS /nt
--- NOTE | 2018-09-04 16:00 | NUR ---
Pt is dcing to 5N acute rehab later this afternoon. All parties are aware and agreeable.
[2018-09-04 16:12] VITALS: BP 137/78
--- NOTE | 2018-09-04 17:06 | NUR ---
REPORT CALLED IN TO ANDRA RN, PT TO TRANSFER TO 5N THIS AFTERNOON. PT SLEEPING AT THIS TIME. BED ALARM ON.
[2018-09-05] MEDS ORDERED: SENNA8.6 MG PO (16:43)
[2018-09-05] MEDS ORDERED: TYLENOL EXTRA500 MG PO (17:11)
== END 2018-09-04 18:16 | DRG 329 ==
LOC: TBA 05:47 → 4E 05:47 → PRE 06:47 → 4E 19:33
PROVIDERS: Family Medicine; Student in an Organized Health Care Education/Training Program; ADMIT Surgery
PROC: 0DB80ZZ Excision of Small Intestine, Open Approach (ICD-10-PCS; principal; 2018-08-28)
PROC: 0D9670Z Drainage of Stomach with Drainage Device, Via Natural or Artificial Opening (ICD-10-PCS; principal; 2018-08-28)
PROC: 0DN80ZZ Release Small Intestine, Open Approach (ICD-10-PCS; principal; 2018-08-28)
PROC: 30233N1 Transfusion of Nonautologous Red Blood Cells into Peripheral Vein, Percutaneous Approach (ICD-10-PCS; 2018-08-31)
DX: K56.51 Intestinal adhesions [bands], with partial obstruction (principal); E43 Unspecified severe protein-calorie malnutrition; G92 Toxic encephalopathy; N17.9 Acute kidney failure, unspecified; F05 Delirium due to known physiological condition; D64.9 Anemia, unspecified; I10 Essential (primary) hypertension; Z68.25 Body mass index [BMI] 25.0-25.9, adult; Z85.118 Personal history of other malignant neoplasm of bronchus and lung; Z92.21 Personal history of antineoplastic chemotherapy; Z92.3 Personal history of irradiation; Z87.891 Personal history of nicotine dependence; Z86.711 Personal history of pulmonary embolism; Z86.14 Personal history of Methicillin resistant Staphylococcus aureus infection; Z79.899 Other long term (current) drug therapy
CPT/HCPCS: 10783; 50010; 50093; 50101; 50386; 50455; 51412; 51435; 51708; 51712; 52287; 55075; 56524; 56527; 56530; 56771; 57092; 62110; 62900; 70005

== ENCOUNTER 2018-09-04 16:21 | Inpatient (IN) | payer OTHER, BC ==
[~2018-09-04] VITALS: Ht 180.3 cm; Wt 79.6 kg
--- NOTE | ~2018-09-04 | H ---
[facility] [place] [address] HISTORY AND PHYSICAL Name: JAMAR DAMON Room #: 514-P ADM IN M.R.#: [id number] Admission: 09/04/18 Attend Phys: Sidney Wheat MD Discharge: Date of : 47 Report #: [id number] THIS REPORT FOR: //name// CC: Sidney Yanes DATE OF SERVICE: 09/04/2018 HISTORY AND PHYSICAL AND POSTADMISSION PHYSICIAN EVALUATION HISTORY OF PRESENT ILLNESS: The patient is a 73-year-old white male originally admitted to [facility], 08/28/2018 with a small-bowel obstruction and underwent exploratory laparotomy with lysis of adhesions. He was noted to have confusion postoperatively. He did receive a dose of Haldol for agitation. He was noted to have some renal insufficiency. has noted his cognition was definitely different from premorbid and he was felt to have a toxic metabolic encephalopathy. He did have replacement of his NG tube. It was subsequently able to be removed and he was put on clear liquids. He was noted to have had a significant functional decline and an overall cognitive decline from premorbid status and has been admitted for acute in-hospital inpatient rehabilitation. The patient was seen yesterday. He was admitted to the acute rehab [place] yesterday. PAST MEDICAL HISTORY: Includes lung cancer stage 4 with prior chemo and radiation. 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 He has had exploratory laparotomy with small bowel intestine appeared 3 times per report. He had bilateral PEs in 2016, IVC filter placement, history of MRSA and C. diff, 05/21/2018. MEDICATIONS: Please see the medication listing. This includes vitamins, herbals supplements, over the counters as per record. ALLERGIES: No known drug allergies. SOCIAL HISTORY: Lives with in a house, 2 steps in. Did not typically utilize gait aids premorbidly. They are both retired. REVIEW OF SYSTEMS: Did not offer any current complaints of chest pain, shortness of breath or abdominal discomfort. No focal extremity pain complaints. He does have a cough, which has been noted. PHYSICAL EXAMINATION: GENERAL: A 73-year-old slender white male, in no obvious distress. The patient was seen yesterday. VITAL SIGNS: Temperature was 97.7, pulse 93, respirations 20 and blood pressure [facility] [address] [place] [address] HISTORY AND PHYSICAL Name: JAMAR DAMON Room #: 514-P [facility] IN .R.#: [id number] Admission: 09/04/18 Attend Phys: Sidney Wheat MD Discharge: Date of : 47 Report #: [id number] 99/57. HEENT: Facies were symmetric. He was alert, he follows basic 1 step commands. There is a definite latency in his responses. He tended to perseverate some. Follows basic 1 step commands. CHEST: Sounded clear, maybe some decreased crackles at the right base. CARDIOVASCULAR: Regular rate and rhythm. ABDOMEN: Soft, bowel sounds positive. Abdominal incision has been intact. Surgery has been following as well. EXTREMITIES: No edema. No calf swelling. Tone appeared to be intact. Functionally transfers have been min assist with gait short distance min assist. He has been mod assist with grooming, mod assist for safety judgment. NEUROLOGIC: Speech therapy has noted significant cognitive deficits with severe memory. ASSESSMENT: A 73-year-old white male with the following problem list: 1. Toxic metabolic encephalopathy. 2. Small-bowel obstruction, status post exploratory laparotomy with lysis of adhesions. 3. Cough. Questions in crackles at the right base. Note, he is to have a chest x-ray as per orders. 4. History of stage IV lung cancer with last chemotherapy, 01/2018. 5. History of tobacco abuse. 6. Postop anemia, status post packed red blood cells. 7. Protein calorie malnutrition. PLAN: The patient was admitted for acute in-hospital inpatient rehabilitation. From a postadmission physician evaluation perspective, there are no relevant changes since the preadmission screening. Please see the above review of prior and current medical and functional conditions and comorbidities. Please see the patient's previous and current functional status. As far as risk of complications, the patient has multiple medical comorbidities as noted above. Initial plan of care involves the interdisciplinary acute inpatient rehabilitation program with goal of maximizing the patient's functional independence, so he can hopefully return back to his prior living situation. Measurable functional goals would be for the patient to become modified independent with transfers, mobility, ADLs, so that he can hopefully return back home as well as improvement in cognition. Prognosis is reasonably good with estimated length of stay probably at least 7-14 days pending progress. Potential barriers would include his multiple medical comorbidities and decreased functional status. The patient meets diagnostic criteria for an acute in-hospital inpatient rehabilitation stay. He meets the medical necessity criteria. He will be followed by primary care for his medical issues as well as by Surgery. He does [address] [address] HISTORY AND PHYSICAL Name: JAMAR DAMON Room #: 514-P [facility] IN .R.#: [id number] Admission: 09/04/18 Attend Phys: Sidney Wheat MD Discharge: Date of : 47 Report #: [id number] have the tolerance for therapies and has appropriate discharge goals back to the home setting. By: [id number] Sidney Wheat MD /PMT
[~2018-09-04 16:21] MED LIST changes: +ALBUTEROL2.5 MG/0.5 INH
[2018-09-04 18:00] VITALS: BP 99/57
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
[2018-09-04 19:41] VITALS: BP 113/65
--- NOTE | 2018-09-05 00:39 | NUR ---
CALLED [facility] APPROX 1150 BECAUSE PT C/O ABD AND BACK PAIN. PT ABD FIRM, DISTENDED. DENIES FLATUS. PT RESTLESS TURNING IN BED FREQUENTLY. CALLED PHYSICIAN POLITICAL ANTHROPOLOGIST (DR HAYES PER [facility]) LEFT MSG FOR REQUEST OF SUPPOSITORY AND/OR OTHER MEDS TO RELEIVE PTS ABD DISCOMFORT AND POSSIBLY HAVE BM FOR RELEIF. PHYSICIAN DID NOT CALL BACK. CALLED [facility] AGAIN APPROX 0023 AND WAS TOLD BY [facility] THAT PHYSICIAN LEFT MSG WITH [facility] THAT HE WOULD HANDLE IN THE MORNING AND TO NOT CALL BACK AGAIN FOR SUPP REQUEST.
--- NOTE | 2018-09-05 02:36 | NUR ---
assumed care at approx 1900 evening 09/04. pt lying in bed at change of shift dozing off and on. pt took hs meds with no problems with water. pt with abd firm and distended c/o abd and back pain. pt given pain meds as ordered and able to sleep off and on. pt turning himself in bed with sometimes assist with pillows. pt also forgetful and somewhat confused at times. bed alarm on and call light in reach. will continue. pt close to nurses station able to see pt.
[2018-09-05 03:33] LABS: CALCIUM 8.8 mg/dL (8.5-10.1); CREATININE 1.3 mg/dL (0.7-1.3)
[2018-09-05 04:36] LABS: MCH 31.8 pg (26.0-34.0)
[2018-09-05 04:38] LABS: HEMATOCRIT 21.1 % (42.0-52.0); MCHC 33.1 g/dL (28.0-37.0); MCV 95.9 fL (80.0-100.0); RBC 2.2 mil/uL (4.50-6.00); RDW 14.6 % (10.5-14.5); WBC 5.4 thou/uL (4.0-11.0)
[2018-09-05 08:38] VITALS: BP 103/64
--- NOTE | 2018-09-05 09:27 | NUR ---
WOUND CONSULT: PT. WAS SEEN TODAY FOR SKIN EVALUATION. PT. HAS NO ACTIVE WOUNDS NOTED AT THIS TIME. PT. HEELS AND BUTTOCK/SACRUM WERE EVALUATE AND ALL AREAS ARE BLANCHABLE WITH NO SIGNS OF INJURY OR COMPROMISE. PT. HAD A PREVENA TO HIS MIDLINE ABDOMEN INCSION. UPON ASSMENT I DISCOVERED THAT IT WAS NOT FUNCTIONING PROPERLY. DR. LANGE WAS NOTIFED AND RECIVED A VERBAL ORDER TO DISCONTINUE PREVENA AND UTLIZE ANOTHER DRESSING. INCSION IS WELL APPROXIMATED WITH NO SIGNS OR SYMPTOMS OF INFECTION NOTED AT THIS TIME. MINIMAL DRAINAGE IS NOTED. RECOMMENDATIONS: CONTINUE WITH PRESSURE ULCER PREVENTION MEASURE AND MONITOR MIDLINE INCISION FOR SIGNS AND SYMPTOMS OF INFECION. JUDICIAL CLERK WILL BE SIGNING OFF AT THIS TIME. PLEASE RE-CONSULT IF NEEDED. PT. AND STAFF NURSE WERE INSTRUCTED ON PLAN OF CARE.
[2018-09-05 09:39] LABS: URINE BILIRUBIN 1+ (Negative); URINE BLOOD NEGATIVE (Negative); URINE CLARITY CLEAR; URINE COLOR YELLOW; URINE GLUCOSE-RANDOM* NEGATIVE (Negative); URINE KETONES NEGATIVE (Negative); URINE LEUKOCYTES-REFLEX NEGATIVE (Negative); URINE NITRITE-REFLEX NEGATIVE (Negative); URINE PROTEIN (DIPSTICK) 1+ (Negative); URINE SPECIFIC GRAVITY 1.025 (1.005-1.035)
[2018-09-05 09:42] LABS: ICTOTEST (BILI CONFIRMATORY) Positive (Negative)
[2018-09-05 10:01] LABS: BACTERIA-REFLEX 1-9 Few /HPF (None Seen); COARSE GRANULAR CASTS 4-10 Moderate /LPF (None Seen); CRYSTALS None Seen /LPF (None Seen); SQUAMOUS 0-3 Few /LPF (0-3); URINE RBC 0-2 Rare /HPF (0-2); URINE WBC-REFLEX 0-5 Rare /HPF (0-5)
--- NOTE | 2018-09-05 12:16 | NUR ---
cm visited with pt and yamilka at bedside. pt was on his own cpap that his reports " has not used since been in hospital with nasal tube."/yamilka. clara would open and close eyes during visit, he is a & o x 3 with confusion and forgetfulness. 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 he was independent prior to hospital and would drive to his own appointment. live in house, 2 steps to enter, no stairs inside. has walker but doesn't use it. had vna in past for hh but ok with using [facility], been speaking with laney. had oupt rehab 2 x week at [facility] [address]."/pt and yamilka. had to take him before for fluids at [facility] center rt only thing he drinks is coffee, water and scotch. education on team meeting and transition of care. will cont following as needed for dc needs. bedside passed on that pt might need another ng tube and be going back to acute care.
--- NOTE | 2018-09-05 14:54 | NUR ---
ASSUMED CARE AT APPROX 0715. PATIENT AWAKE. ORIENTED TO PERSON AND PLACE. FORGETFUL AND CONFUSED. TEMP ELEVATED, PROVIDER ROUNDED ON PATIENT, ORDERS RECIEVED FOR CXR. WOUND RN ROUNDED ON PATIENT, MIDLINE INCISION DRESSING CHANGED FROM PROVENA VAC TO GAUZE DRESSING, ORDERS FOR DRESSING CHANGE RECEIVED. C/O OF ABDOMINAL PAIN, REHAB YOGHURT MAKER ROUDNED, ORDER CHANGED TO KUB + CXR. RESULTS COMMUNICATED TO SURGEON'S YOGHURT MAKER WHO ROUNDED ON THE PATIENT WELL AND GAVE ORDERS FOR ABD CT WITH CONTRAST. IV ANTIBIOTIC ADMINISTERED. NG TUBE PLACED, SET TO LOW INTERMITTENT SUCTION. PRIMARY CARE AND REHAB PHSYICIAN GAVE ORDERS TO RE-ADMIT PATIENT TO ACUTE FLOOR. PATIENT TO TRANSFER TO ROOM 361. CALLED SURGEON'S OFFICE TO NOTIFY OF CHANGE. AWAITING CALL BACK. FALL PRECAUTIONS IN PLACE. WILL CONTINUE TO MONITOR.
[2018-09-05] MEDS ORDERED: SENNA8.6 MG PO (16:43)
[2018-09-05] MEDS ORDERED: TYLENOL EXTRA500 MG PO (17:11)
== END 2018-09-05 16:07 | disposition short-term general hospital (02) | DRG 91 ==
PROVIDERS: Family Medicine; ADMIT Physical Medicine & Rehabilitation
DX: G92 Toxic encephalopathy (principal); J18.9 Pneumonia, unspecified organism; E46 Unspecified protein-calorie malnutrition; K56.600 Partial intestinal obstruction, unspecified as to cause; R05 Cough; D64.9 Anemia, unspecified; R53.81 Other malaise; R50.9 Fever, unspecified; Z85.118 Personal history of other malignant neoplasm of bronchus and lung; Z92.21 Personal history of antineoplastic chemotherapy; Z72.0 Tobacco use; Z68.24 Body mass index [BMI] 24.0-24.9, adult
CPT/HCPCS: 10112

== ENCOUNTER 2018-09-05 15:03 | Inpatient (IN) | payer OTHER, BC ==
[~2018-09-05] VITALS: Ht 180.3 cm; Wt 65.2 kg
[2018-09-05 16:15] VITALS: BP 91/58
[2018-09-05] MEDS ORDERED: SENNA8.6 MG PO (16:43)
--- NOTE | 2018-09-05 17:00 | NUR ---
PT RECEIVED FROM N..SPOUSE PRESENT AND SHE REPORTS SHE IS DPOA...PATIENT PULLED OUT NG PRIOR TO TRANSFER TO 3W..REPLACED NG TO RT NARES..CONTRAST GIVEN PER NG AND CAT SCAN NOTIFIED..TRANSPORTED PATIENT TO CT SCAN..WILL CALL RESULTS TO DR SWAN AFTER READ...
[2018-09-05] MEDS ORDERED: TYLENOL EXTRA500 MG PO (17:11)
[2018-09-05 17:24] LABS: HEMATOCRIT 20.3 % (42.0-52.0); MCH 32.8 pg (26.0-34.0); MCHC 34.5 g/dL (28.0-37.0); MCV 95.2 fL (80.0-100.0); RBC 2.13 mil/uL (4.50-6.00); WBC 8.4 thou/uL (4.0-11.0)
[2018-09-05 18:07] LABS: ALBUMIN 2.2 g/dL (3.4-5.0); CALCIUM 9.3 mg/dL (8.5-10.1); POTASSIUM 4.5 mmol/L (3.5-5.1); TOTAL BILIRUBIN 2.8 mg/dL (<0.1-1.0); TOTAL PROTEIN 5.9 g/dL (6.4-8.2)
[2018-09-05 20:00] VITALS: BP 94/52
[2018-09-06] VITALS (38 sets, daily range): BP systolic 86–130; BP diastolic 44–65
--- NOTE | 2018-09-06 03:21 | NUR ---
PT MAKING SLOW PROGRESS TOWARDS GOALS. UPON INTIAL ASSESSMENT, BANDAGE TO ABDOMEN WAS 10-20% SATURATED. BY 2229 BANDAGE WAS OVER SATURATED AND HAD BEEN LEAKING OUTSIDE OF THE DRESSING. DRAINAGE IS SEROSANGUINOUS. WOUND ITSELF IS WELL APPROXIMATED WITHOUT SURROUNDING REDNESS AND HALLIE ARE INTACT. OF THIS TIME THE DRESSING HAS FULLY SATURATED, LEAKING AND REPLACED FOUR TIMES. PT ALERT, ORIENTED TO NAME, SOMETIMES PLACE BUT CAN BE VERY FORGETFUL. HAS DIFFICULTY RETAINING INSTRUCTIONS. DAY RN STATED THAT PT REMOVED HIS NGT EVEN WHILE WAS IN THE ROOM WITH HIM. DID OBTAIN ORDER TO PLACE BL SOFT WRIST RESTRAINTS. DID ALSO SPEAK WITH DR. SWAN LAST NIGHT IN RELATION TO ABDOMINAL WOUND LEAKING. ORDERS RECEIVED. NGT DRAINAGE 500ML, DARK GREEN WITH DARK BROWN CHUNKS OF WHAT IS POSSIBLY FECAL MATERIAL. PT BREATH IS VERY MALODOROUS. DR. SWAN ALSO INFORMED OF THAT FINDING.
[2018-09-06 07:27] LABS: ABSOLUTE NEUTROPHILS 4.2 thou/uL (1.4-8.2); MCHC 33.4 g/dL (28.0-37.0)
[2018-09-06 07:29] LABS: BASOPHILS 0.2 % (0.0-2.0); EOSINOPHILS 0.1 % (0.0-3.0); LYMPHOCYTES 4.3 % (24.0-44.0); MCH 32.1 pg (26.0-34.0); MCV 96.2 fL (80.0-100.0); MONOCYTES 5.2 % (1.0-8.0); PLATELET COUNT 235 thou/uL (150-400); POLYS 90.2 % (36.0-66.0); RBC 1.96 mil/uL (4.50-6.00); WBC 4.6 thou/uL (4.0-11.0)
[2018-09-06 07:32] LABS: HEMATOCRIT 18.9 % (42.0-52.0); HEMOGLOBIN 6.3 gm/dL (14.0-18.0)
[2018-09-06 08:01] LABS: CALCIUM 8.4 mg/dL (8.5-10.1); CREATININE 1.7 mg/dL (0.7-1.3); POTASSIUM 4.3 mmol/L (3.5-5.1)
[2018-09-06 09:31] LABS: APTT 39.7 Seconds (24.5-32.8); INR 1.3; PROTIME 13.4 Seconds (9.3-11.4)
--- NOTE | 2018-09-06 09:55 | NUR ---
AWAKE, ALERT, AT BEDSIDE. HGB DOWN 0.7GRAMS TO 6.3. DR. MATHIS HERE, ORDERS 1UPRBC. TYPE AND SCREEN DRAWN VIA PORTACATH, BLOOD RETURN BRISK. REPORT CALLED TO PREOP; LEVAQUIN AND VANCOMYCIN SENT WITH PATIENT. ST PER TELE. DR. SWAN HERE, LONG DISCUSSION WITH PATIENT AND HIS . DOWN TO PREOP BY BED WITH PORTABLE TELE IN PLACE, ACCOMPANIED BY MYSELF, MALLORY, AND PATIENT'S .
--- NOTE | 2018-09-06 14:23 | NUR ---
Note TPN to start, recommend pharmacy to manage tpn. Suggest 15%dex, 5%AA and 2.9% lipids to start 40ml/hr. progress rate slowly to goal 90ml/hr to avoid complications of refeeding syndrome.
[2018-09-06 14:43] LABS: CALCIUM 7.8 mg/dL (8.5-10.1); CREATININE 1.3 mg/dL (0.7-1.3); MAGNESIUM 1.4 mg/dL (1.8-2.4); POTASSIUM 3.9 mmol/L (3.5-5.1)
--- NOTE | 2018-09-06 14:59 | NUR ---
PT IS POST OP EX LAP WITH WASHOUT, DEBRIDEMENT OF NECROTIC ABD WALL AND LISSET AND IN ICU POST OP. NO W/E DC PLANNED.
[2018-09-06 15:06] LABS: HEMATOCRIT 22.7 % (42.0-52.0); HEMOGLOBIN 7.9 gm/dL (14.0-18.0); MCH 32.6 pg (26.0-34.0); MCHC 34.9 g/dL (28.0-37.0); MCV 93.3 fL (80.0-100.0); PLATELET COUNT 217 thou/uL (150-400); RBC 2.43 mil/uL (4.50-6.00); RDW 14.7 % (10.5-14.5); WBC 5.5 thou/uL (4.0-11.0)
[2018-09-06 16:23] LABS: ABSOLUTE NEUTROPHILS 4.9 thou/uL (1.4-8.2); PLATELET ESTIMATE NORMAL
--- NOTE | 2018-09-06 19:19 | NUR ---
PT TRANSFERED TO ICU POST OP, EXPLORATORY LAP WITH WASHOUT. PT DROWSY AND CONFUSED. PER PT HAS BEEN CONFUSED FOR THE PAST COUPLE DAYS. NEUO CONSULTED. VSS. UPON ARRIVAL TO UNIT, BLOOD PRESSURES SOFT, BUT MAP MAINTAINED >60. 2 KRYSTIAN DRAINS, KATLIN CATHERINEH 100 OUTPUT. DRAIN B WITH NO OUTPUT. THIRD DRAIN WITH UNMEASURABLE OUTPUT. AFEBRILE. CONSULT FOR DR. ALMANZA ON IV ABX. CONSULT FOR PULMONARY, PLAN FOR THORACENTESIS TOMORROW. ON 2L OXYGEN PER NC, MAINAINING SATS. PRN FENTANYL GIVEN X1. ABDOMINAL BINDER IN PLACE. NEGRON PATENT. STARTED ON TPN THIS EVENING. AT BEDSIDE. NOTED MG 1.[address] MATHIS - TPN HAS ADDED MAG, WILL REDRAW LABS IN AM. BILATERALY WRIST RESTRAINTS TO PREVENT PULLING AT LINES/TOSHIA.
[2018-09-07] VITALS (21 sets, daily range): BP systolic 87–121; BP diastolic 50–63
--- NOTE | 2018-09-07 03:20 | NUR ---
ASSUMED PT CARE AT 1900. PT ORIENTED TO PLACE, TIME, OCCASIONALLY TO SITUATION, FORGETFUL AND SOMETIMES CONFUSED. VITAL SIGNS STABLE WITH SOFT BP, ASSESSMENT CHARTED. ABDOMINAL PAIN ADEQAUTELY MANAGED WITH PAIN MEDICATION. ROM PROVIDED Q2HR, Q2HR TURNS, HOURLY ROUNDING. PT RESTED WELL THROUGH THE NIGHT. PROGRESSING TOWARD PLAN OF CARE. WILL CONTINUE TO CLOSELY MONITOR.
[2018-09-07 04:16] LABS: ABSOLUTE NEUTROPHILS 4.8 thou/uL (1.4-8.2); BASOPHILS 0.3 % (0.0-2.0); EOSINOPHILS 0.5 % (0.0-3.0); HEMATOCRIT 22.7 % (42.0-52.0); HEMOGLOBIN 7.7 gm/dL (14.0-18.0); LYMPHOCYTES 4.5 % (24.0-44.0); MCH 31.8 pg (26.0-34.0); MCHC 33.8 g/dL (28.0-37.0); MCV 94.1 fL (80.0-100.0); MONOCYTES 5.8 % (1.0-8.0); PLATELET COUNT 232 thou/uL (150-400); POLYS 88.9 % (36.0-66.0); RBC 2.42 mil/uL (4.50-6.00); RDW 15.1 % (10.5-14.5); WBC 5.4 thou/uL (4.0-11.0)
[2018-09-07 04:22] LABS: ALBUMIN 1.5 g/dL (3.4-5.0); CREATININE 1.2 mg/dL (0.7-1.3); MAGNESIUM 1.7 mg/dL (1.8-2.4); PHOSPHORUS 2.8 mg/dL (2.5-4.9); POTASSIUM 3.8 mmol/L (3.5-5.1); TOTAL BILIRUBIN 3.1 mg/dL (<0.1-1.0); TOTAL PROTEIN 4.4 g/dL (6.4-8.2)
--- NOTE | 2018-09-07 13:03 | HC ---
[facility] [place] [address] CONSULTATION Name: JAMAR DAMON Room #: 237-[facility] IN M.R.#: [id number] Admission: 09/05/18 Attend Phys: Teddy Yanes MD Discharge: Date of : 49 Report #: [id number] THIS REPORT FOR: //name// CC: Teddy Yanes TYPE OF REPORT: Pulmonary consultation. PRIMARY CARE PHYSICIAN: Teddy Yanes M.D. REASON FOR REFERRAL: Pleural effusion and infiltrates. HISTORY OF PRESENT ILLNESS: The patient is a 73-year-old gentleman who is status post surgery. A Pulmonary consultation was requested regarding right-sided pleural effusion and possible pneumonia. The patient underwent a laparotomy for lysis of adhesions and segmental small bowel resection for small-bowel obstruction approximately 9 days ago. Postoperatively, the patient did fairly well. He was then transferred to the rehabilitation unit. Shortly thereafter, the patient had complained of abdominal pain and distention. CT abdomen and pelvis performed earlier yesterday shows 12 x 25 x 35 cm fluid collection. The patient was felt to have a bile leak. Earlier today, the patient underwent surgery. Intraoperatively, the patient was found to have perforated viscus at the ischemic anastomosis. Additional lysis of adhesion was performed, drainage of the anastomotic leak, debridement of the necrotic abdominal wall including subcutaneous tissue and fascia. Postoperatively, the patient is doing fairly well. He is extubated. He is on 2 liters of O2. He is alert, in no distress. The patient notes that he has had a cough productive of yellowish sputum earlier. PAST MEDICAL HISTORY: Notable for stage 4 lung cancer, undergoing chemotherapy and he also had radiation therapy followed at [facility]; IVC filter placement in 2016; hypertension; past history of tobacco use, having smoked 2 packs a day for years, quit in 2014; sleep apnea, on CPAP; history of bilateral pulmonary embolus; IVC filter placement as mentioned above and history of anxiety disorder. PAST SURGICAL HISTORY: Status post umbilical herniorrhaphy; appendectomy, at the age of 8, surgery as mentioned above and history of laparotomy three times prior to recent surgery. ALLERGIES: None to medications. CURRENT MEDICATIONS: List reviewed. This includes nebulized DuoNeb, folic [facility] [address] [place] [address] CONSULTATION Name: JAMAR DAMON Room #: 237-P [facility] IN [facility].#: [id number] Admission: 09/05/18 Attend Phys: Teddy Yanes MD Discharge: Date of : 47 Report #: [id number] acid, Reglan, Celexa, senna, Centrum and probiotic. FAMILY HISTORY: Noncontributory. SOCIAL HISTORY: The patient has smoked about 2 packs a day for 40 years, quit in 2014. Drinks 3 glasses of scotch per day. REVIEW OF SYSTEMS: As mentioned above, otherwise 10-point systems deferred. PHYSICAL EXAMINATION: GENERAL: He is awake and alert, in no distress. VITAL SIGNS: Temperature is 97.9 degrees Fahrenheit, pulse of 100, respiratory rate is 30, blood pressure is 110/65 mmHg and saturation 100%. HEENT: Normocephalic and atraumatic. NECK: Supple, without any lymphadenopathy or thyromegaly. CHEST: Breath sounds are fair due to poor effort, decreased in the right base. Few scattered crackles. No wheezes. CARDIOVASCULAR: Heart sounds are distant. No obvious murmurs or gallop. Pulses are 2+/4+ bilaterally. ABDOMEN: Soft and tender. No masses felt. GENITOURINARY: Deferred. RECTAL: Deferred. EXTREMITIES: There is no edema, cyanosis or clubbing. RADIOLOGICAL DATA: Chest x-ray is pending. CT abdomen shows a moderate-sized right-sided pleural effusion, atelectasis and no infiltrates in the right lower lobe. Chest x-ray from 09/03/2018 is reviewed. LABORATORY DATA: Electrolytes normal. Creatinine is 1.3 and it was 2.0 and bicarbonate is 20. WBC is 5500, hemoglobin 7.9 and platelets are normal. Albumin 2.2. IMPRESSION: 1. Right pleural effusion, right lower lobe infiltrates and/or atelectasis in this 73-year-old white male. Pleural effusion may be reactive due to recent intraabdominal process. However, aspiration cannot be ruled out. 2. Status post exploratory laparotomy, lysis of adhesion, repair of an anastomotic leak as mentioned above. 3. Peritonitis due to an anastomotic leak, on broad-spectrum antibiotics. 4. Acute kidney injury. 5. Metabolic acidosis due to sepsis related to intraabdominal infection as mentioned above. 6. Severe protein-calorie malnutrition. 7. Anemia. 8. Stage 4 lung cancer, ongoing chemo, followed at [facility]. He had prior radiation therapy. [address] [address] CONSULTATION Name: JAMAR DAMON Room #: 237-P [facility] IN M.R.#: [id number] Admission: 09/05/18 Attend Phys: Teddy Yanes MD Discharge: Date of : 49 Report #: [id number]. History of bilateral pulmonary embolus, status post inferior vena cava filter placement. 10. History of tobacco use, having smoked 2 packs a day for 40 years, quit in 2014. 11. Obstructive sleep apnea, on home continuous positive airway pressure and we will resume. 12. Anxiety disorder. 13. Hypertension. RECOMMENDATION: We will proceed with diagnostic thoracentesis by Interventional Radiology in the morning. He is already on broad-spectrum antibiotics. Follow up chest x-ray. Resume home CPAP for sleep apnea. Bronchodilators will be initiated. Thank you for this consultation. <ELECTRONICALLY SIGNED> By: Teddy Negron MD 09/07/18 1303 [id number] Teddy Negron MD /nt
[2018-09-07 18:21] LABS: TSH 1.39 uIU/mL (0.358-3.740)
[2018-09-07 18:36] LABS: CLARITY CLEAR; COLOR YELLOW; SOURCE CHEST FLUID; TOTAL VOLUME 60 mL
[2018-09-07 18:44] LABS: BF NUCLEATED CELLS 162; BF RBC 316
--- NOTE | 2018-09-07 20:11 | NUR ---
Assumed care of patient at 0700. Patient is awake, alert, very forgetful of surroundings. Midline dressings appear intact with no drainage, abdominal binders remains in place. Bilateral KRYSTIAN drains patent and draining, right > left. Midline drain to DD with scant amounts of thin green/brown output. Patient does c/o abdominal pain with repositioning and turns, but denies at rest and while relaxed. TPN/lipids infusing, NG to LIS, remains NPO. Underwent ultrasound guided right thoracentesis today, 1700 ml off. Updated family at bedside as able, continue to monitor. Report given to oncoming RN.
[2018-09-07 20:21] LABS: BF NEUTROPHILS 9
[2018-09-07 20:22] LABS: BF MACROPHAGE 21
[2018-09-08] VITALS (25 sets, daily range): BP systolic 110–140; BP diastolic 49–98
--- NOTE | 2018-09-08 05:52 | NUR ---
AOX1, CONFUSED, RESTLESS. FENTANYL GIVEN, PT HALLUCINATING AFTER ADMINISTRATION. ON RESTRAINTS. ON 2L NC. NO SIGNS OF DISTRESS AT REST. VSS. AFEBRILE. DRAINS IN PLACE, OUTPUT NOTED. NG IN PLACE, OUTPUT COPIOUS. ADEQUATE URINE OUTPUT. PT PULLED OUT ARTLINE. NO COMPLAINS PRESENTLY. WILL CONTINUE TO MONITOR.
[2018-09-08 06:08] LABS: CALCIUM 8.2 mg/dL (8.5-10.1); CREATININE 1.1 mg/dL (0.7-1.3); MAGNESIUM 1.5 mg/dL (1.8-2.4); PHOSPHORUS 2.5 mg/dL (2.5-4.9)
--- NOTE | 2018-09-08 10:54 | NUR ---
PT ALERT TO PERSON, CONFUSED, DESPITE PEREZ RESTRAINTS PT TAKING HAND MITTS OFF THEN BEGINNING TO TUG AT TUBES AND WIRES. REPLACING MITT AND PT STATING HE WANTS TO GET OUT OF HERE. SCOOTS HIS LEGS FROM ONE SIDE TO THE OTHER IN ATTEMPT TO GET OUT OF BED. SR, 2L/NC, WHEN ASKED PT HAS VERY SHALLOW COUGH WHILE RN SPLINTING ABD, LUNGS DIMINISHED, 2L/NC, NPO, HYPOACTIVE BOWEL SOUNDS, NG PATENT WITH BILE GREEN DRAINAGE, R KRYSTIAN WITH GREEN DRAINAGE, L KRYSTIAN YELLOW MIXED WITH PALE RED DRAINAGE, ABDOMINAL NEGRON DRAIN WITH GREEN DRAINAGE, ADEQUATE URINE OUTPUT. NO PROGRESS AT THIS TIME.
[2018-09-08 17:06] LABS: BODY FLUID ALBUMIN 1.4 g/dL (()); BODY FLUID AMYLASE 37 U/L (()); BODY FLUID GLUCOSE 124 mg/dL (()); BODY FLUID LDH 93 IU/L (()); BODY FLUID PROTEIN 2.6 g/dL (())
--- NOTE | 2018-09-08 19:15 | NUR ---
HALDOL IV GIVEN FOR AGITATION/CONFUSION, MORPHINE GIVEN FOR PAIN PRIOR TO CHANGE OF ABDOMINAL DRESSING. PARTIAL DRESSING CHANGE, IN PROCESS OF CHANGING DRESSING PT YELLING OUT IN PAIN, PRESSURE HELD ON ABD TO DECREASE DISCOMFORT, REPLACED DRAIN SPONGES AND ABD'S, THEN ABD BINDER REAPPLIED. FAMILY PRESENT INTERMITTENTLY DURING SHIFT, PROVIDED SUPPORT. ASSESSMENTS UNCHANGED. NO PROGRESS.
[2018-09-09] VITALS (14 sets, daily range): BP systolic 114–144; BP diastolic 57–74
--- NOTE | 2018-09-09 05:00 | NUR ---
PT HAS BEEN AWAKE ALLL NOCT. HALDOL X 1 FOR AGITATION. 1000 CC UO AND TOTATL OF 120 CC FRO KRYSTIAN DRAINS. AGD BINDER INTACT. REMAINS IN SINUS RHYTHM LUBNGS CLEAR. O2 SAT 98 % ON ROOM AIR. WILL CONT TO MONITOR
[2018-09-09 05:57] LABS: CALCIUM 8.5 mg/dL (8.5-10.1); MAGNESIUM 1.8 mg/dL (1.8-2.4); POTASSIUM 3.7 mmol/L (3.5-5.1)
--- NOTE | 2018-09-09 06:00 | NUR ---
PT AWAKE AND ALERT. PLEASENTLY CONFUSED. WANTS TO GO TO SCHOOL AND THE [employer] THIS AM. LUNGS CLEAR. O2 SAT 98 % ON ROOM AIR. TOTAL OF 110 CC FROM 2 KRYSTIAN DRAINS AND 0 FROM ABD DRAIN. 600 CC NG DRAINAGE AND 1600 CC UO THIS SHIFT HSLDOL X 1 FOR AGITATION TONIGHT. REMAINS IN SINUS RHYTHM. BATHED WILL CONT TO MONITOR CLOSELY.
[2018-09-09 09:06] LABS: SOURCE CHEST
--- NOTE | 2018-09-09 14:35 | NUR ---
CM ASSESSMENT: CASE OPENED FOR DC PLANNING. CLINICAL INFO REVIEWED. PT HAD EX LAP FOR BOWEL OBSTRUCTION 08/28/18 AND DC TO [facility]N ACUTE REHAB ON 09/04. RETURN TO ACUTE 09/05 WITH ABD SYMPTOMS AND IS NOW S/P EX LAP WITH WASHOUT, EXTENSIVE LISSET 09/06/18 AND TRANSFERRED TO ICU POST OP. PLAN FOR BOWEL REST AND TPN FOR SOME TIME. NAVIDO HAS RIGHT PLEURAL EFFUSION AND HAD THORACENTESIS WITH 1/7 L REMOVED 09/07. 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 HAS WALKER AT HOME. REMOTE HOME HEALTH USE WELL. APPEARS APPRORPRIATE FOR LTACH STAY VS RETURN TO ACUTE REHAB. DISCUSED BRIEFLY WITH DR. MATHIS THIS AM WHO CONFIRMS LTACH APPROPRIATE BUT NOT CURRENTLY MEDICALLY READY FOR TRANSITION OF CARE.
--- NOTE | 2018-09-09 15:04 | HC ---
[facility] [place] [address] CONSULTATION Name: JAMAR DAMON Room #: 237-P [facility] IN M.R.#: [id number] Admission: 09/05/18 Attend Phys: Teddy Yanes MD Discharge: Date of : 47 Report #: [id number] THIS REPORT FOR: //name// CC: Teddy Yanes DATE OF SERVICE: 09/06/2018 REASON FOR CONSULTATION: I was asked to evaluate concerning peritonitis and sepsis. HISTORY OF PRESENT ILLNESS: The patient was a 73-year-old with recurrent small-bowel obstruction. Approximately 10 days ago, the patient underwent release of small-bowel obstruction with segmental small bowel resection and anastomosis closure. He did well postoperatively until yesterday when he spiked fever of 102 degrees. White count has remained stable. Earlier this morning, he showed evidence of dehiscence with succuss drainage from his midline incision. Yesterday, a CT scan did show evidence of a large fluid collection at the site of his anastomosis. Blood pressures remained reasonably stable, 80-90 systolic with good urine output and heart rate in the 80s. The patient has had no cough or sputum production. No pleuritic chest pain. No palpitations. No change in his mental status. He has had no vomiting. He passed a stool 2 days ago. He has an indwelling urinary catheter. He has persistent abdominal pain. He was taken to the Operating Room today where NG tube was placed. He had evidence of localized peritonitis with small bowel anastomotic ischemic change with leak. This was unable to be repaired. He had drains placed and localized debridement, then closure. Plan was to control this fistula until the patient's nutritional status and abdominal healing can occur, then hopefully go back and repair at a later date. REVIEW OF SYSTEMS: Ten-point negative other than what is described above. ALLERGIES: None. MEDICATIONS: As noted on his OCT, having started on vancomycin, Zosyn and Levaquin yesterday. PAST MEDICAL HISTORY: Recurrent small-bowel obstruction, had sigmoid colectomy in 2016 that was complicated by small-bowel obstruction and peritonitis. Also had a PE, intra-abdominal hemorrhage and C. difficile colitis. He has underlying hypertension, obstructive sleep apnea, IVC filter and diagnosed with lung cancer last year, having undergone chemotherapy and radiation. FAMILY HISTORY: Noncontributory. SOCIAL HISTORY: Past smoker, no significant alcohol intake. [facility] [address] [place] [address] CONSULTATION Name: JAMAR DAMON Room #: 237-P [facility] IN M.R.#: [id number] Admission: 09/05/18 Attend Phys: Teddy Yanes MD Discharge: Date of : 47 Report #: [id number] PHYSICAL EXAMINATION: VITAL SIGNS: He is afebrile, blood pressure 90/50 with heart rate 81, respiratory rate 15 on 2 liters of oxygen per nasal cannula. GENERAL: He was lethargic, having recently been out of anesthesia. He was cooperative and verbally conversant. HEENT: Eyes, without scleral icterus. Mouth without mucositis. NG tube in place. 2 liters of oxygen in place. SKIN: Without rash or mottling. No palpable adenopathy. NECK: Supple. LUNGS: Decreased breath sounds in the right base posteriorly. HEART: Regular, without murmur, gallop or rub. ABDOMEN: Diffusely tender with multiple drains in place. GENITOURINARY: External genitalia unremarkable with indwelling Watson catheter. NEUROLOGIC: Cranial nerves intact. Strength in his upper and lower extremities normal. Sensation to touch normal. No peripheral edema, cyanosis or clubbing. LABORATORY STUDIES: Sodium 137, potassium 4.3, bicarbonate 20, creatinine 1.7, bilirubin 2.8, ALT 14, alkaline phosphatase 92. Hemoglobin 6.3 prior to his blood transfusion. WBC 4.6, 90% segs, 4% lymphs, platelet count 235,000. Abdominal fluid culture pending. Chest x-ray, right lower lobe atelectasis associated with right effusion. IMPRESSION: A 73-year-old with: 1. Peritonitis due to small bowel anastomotic leak from ischemic anastomosis. He is approximately 10 days post-release of small-bowel obstruction. 2. Acute kidney injury. 3. Anemia. 4. History of recent lung cancer treatment. 5. IVC filter from previous pulmonary embolus. 6. Right lower lobe atelectasis due to effusion. RECOMMENDATIONS: We will continue nosocomial coverage with vancomycin, Zosyn and fluconazole. Repeat CBC and BMP and chest x-ray. Replace blood products as necessary. Full support. So far no evidence of relapse of his Clostridium difficile colitis. <ELECTRONICALLY SIGNED> By: Jewel Farr MD 09/09/18 1504 [id number] Jewel Farr MD /nt
--- NOTE | 2018-09-09 19:49 | NUR ---
ASSUMED CARE OF PATIENT AT 0700. PT MAINTAINING ADEQUATE OXYGEN SATURATIONS ON ROOM AIR. VSS. REQUIRING OCASSIONAL DOSES OF PRN FENTANYL AND HALDOL FOR POST-OP PAIN AND AGITATION. DISCUSSED WITH TREATMENT PLAN PT'S FAMILY. PT RESTRAINED TO INSURE MAINTAINENCE OF N/G TUBE AND LINES. ORIGINAL SURGICAL DRESSING REMAINS IN PLACE PER DR LANGE, REQUESTS THAT WOUND CARE TEAM REPLACE FIRST DRESSING. CONTINUE TO MONITOR.
[2018-09-10] VITALS (24 sets, daily range): BP systolic 105–134; BP diastolic 55–79
[2018-09-10 05:36] LABS: HEMOGLOBIN 8.1 gm/dL (14.0-18.0); MCH 31.1 pg (26.0-34.0); MCHC 33.6 g/dL (28.0-37.0); MCV 92.6 fL (80.0-100.0); RBC 2.59 mil/uL (4.50-6.00); RDW 14.5 % (10.5-14.5); WBC 7.2 thou/uL (4.0-11.0)
[2018-09-10 05:48] LABS: CALCIUM 8.4 mg/dL (8.5-10.1); MAGNESIUM 1.7 mg/dL (1.8-2.4); PHOSPHORUS 3.6 mg/dL (2.5-4.9); POTASSIUM 3.7 mmol/L (3.5-5.1)
--- NOTE | 2018-09-10 06:00 | NUR ---
PT HAS BEEN AWAKE MOST OF NOCT. PLEASANTLY CONFUSED. FENTANYL AND HALDOL PRN 400 CC NG DRG 1000 CC UO 450 CC FROM KRYSTIAN #B AND 50 CC FROM KRYSTIAN # A ZERO DRG FROM ABD WOUND. REMAINS IN SINUS RHYTHM. REMAINS RESTRAINED. CONT TO PULL AT EVERYTHING. BATHED. WILL CONT TO MONITIOR PT HAS BEEN AWAKE MOST OF NOCT. FENTANYL PRN FOR ABD DISCOMFORT 450 CC NG FRG
--- NOTE | 2018-09-10 19:36 | NUR ---
ASSUMED CARE OF PT AT 0700. MAINTAINING ADEQUATE OXYGEN SATURATIONS ON ROOM AIR. VSS. REQUIRING OCCASIONAL PRN DOSES OF HALDOL FOR ANXIETY/AGITATION AND PRN FENTANYL FOR ABDOMINAL INCISION PAIN, PAINFUL ESPECIALLY WITH POSITION CHANGES AND WOUND DRESSING CHANGES. TREATMENT PLAN DISCUSSED WITH (DRAGAN) AND DAUGHTER (KAYLA). N/G TO LIS, 700ML OUT TODAY. ABD BINDER IN PLACE OVER INCISION AND DRSG. HYPOACTIVE BS AND NO BMs SINCE SURGERY 09/06/18. CONTINUE TO MONITOR.
--- NOTE | 2018-09-10 21:43 | NUR ---
PT RESTING IN NO ACUTE DISTRESS.VSS.AFEBRILE.ON ASSESSSMENT NOTED ABD DRESSING SATURATED ALONG WITH PT'S BEDDING FROM DRAINAGE FROM THE MID ABD INCISIONS.J-P DRAINN X2 IN PLACE,EMPYTIED 100CC BILIOUS DRAINGAE FROM #KRYSTIAN B,KRYSTIAN NO A HAD 25CC.NOTED DRAINAGE LEAKING FROM LOWER PART OF THE INCISIONS,100 CC MORE DRAINED FROM #KRYSTIAN DRAIN B AND 50CC FROM #KRYSTIAN DRAIN A.NO DRAINAGE FROM DRAIN NO 3,PEG TUBE.DRAINING SLOWS DOWN,REDRESSED THE INCISIONS WITH ABD AND SECURE WITH COMPRESSED DRESSING.PT TOLERATED THE PROCEDURE WELL.DENIES PAIN.PT ALERT AND ORIENTED X1.NG TUBE TO LIS.WILL CONT TO MONITOR PER POC.
[2018-09-11] VITALS (41 sets, daily range): BP systolic 87–114; BP diastolic 43–63
--- NOTE | 2018-09-11 05:46 | NUR ---
PT BEEN RESTING IN NAD.A/OX2 WITH CONFUSION IN AND OUT.VSS.ON O2 AT 2LITERS D/T H/O SLEEP APNEA,SATS ADEQUATE.DRESSING TO MID ABD INCISIONS INTACT CLEAN AND DRY.KRYSTIAN DRAINS IN PLACE AND DRAINING GREENISH DRAINAGE.NG TUBE TO LIS 950C DRAINAGE OBTAINED.TPN WITH LIPIDS INFUSING PER ORDERS.IVF PER ORDERS.JAMIL DD,ADEQUATE UO.PT ATTEMPTED TO HAVE BM W/O SUCCESS.REPOSITIONED IN BED Q2H.DENIES N/V.REMAINS NPO.BOWEL SOUNDS ACTIVE X4 QUADS.PAIN MEDS GIVEN W/PAIN RELIEF.PT HAVING INTERMITTENT LOOSE COUGH WITH CLEAR PHELGM,ORAL SUCTION NEEDED.WILL CONT TO MONITOR PER POC.
[2018-09-11 10:39] LABS: HEMATOCRIT 23.1 % (42.0-52.0); HEMOGLOBIN 8.3 gm/dL (14.0-18.0); MCH 32.4 pg (26.0-34.0); MCHC 35.8 g/dL (28.0-37.0); MCV 90.5 fL (80.0-100.0); RBC 2.55 mil/uL (4.50-6.00); RDW 14.6 % (10.5-14.5); WBC 8.6 thou/uL (4.0-11.0)
[2018-09-11 10:53] LABS: ALBUMIN 1.7 g/dL (3.4-5.0); CALCIUM 8.7 mg/dL (8.5-10.1); CREATININE 1.2 mg/dL (0.7-1.3); POTASSIUM 3.9 mmol/L (3.5-5.1); TOTAL BILIRUBIN 3.1 mg/dL (<0.1-1.0); TOTAL PROTEIN 5.4 g/dL (6.4-8.2)
--- NOTE | 2018-09-11 11:07 | PATH ---
[facility] [address] [place] [address] PATHOLOGY RPT PROCEDURE Name: JAMAR DAMON Room #: 246-P ADM IN M.R.#: [id number] Admission: 09/05/18 Date of : 47 Discharge: Report #: [id number] Path Case #: [id number] Note [facility] Accession Number: [id number] TESTS RESULT FLAG UNITS REF RANGE LAB Clinician Provided Cytology Information No. of containers..01 Other (Miscellaneous) Source: PLEURAL FLUID DIAGNOSIS: 02 PLEURAL FLUID NEGATIVE FOR MALIGNANT CELLS. MESOTHELIAL CELLS ARE PRESENT. THIS INTERPRETATION INCLUDES EVALUATION OF A CELL BLOCK. Signed out by: 02 Delfina Chino MD, Pathologist NPI- [id number] Performed by: 01 Isamar Isabel, Machine Heel Sprayer ([facility]) Gross description: 01 15ML, YELLOW, CLOUDY /LCS FLAG LEGEND: L-Low Normal,H-High Normal,LL-Alert Low,HH-Alert High <-Panic Low,>-Panic High,A-Abnormal,AA-Critical Abnormal Performed at: [address] [place] [address] Chaim Kan MD, [address] [address] Delfina Chino MD, Specimen Comment: A duplicate report has been generated due to demographic updates. Performed at: [address], [place], [place] [id number] MD Chaim Kan MD Phone: [phone]
--- NOTE | 2018-09-11 18:43 | NUR ---
ASSUMED CARE AT 0700. PT WAS VERY DROWSY AND A/O TO SELF ONLY. WENT TO CT FOR HEAD AND ABD. VSS FOR THE BEGINNING OF THE SHIFT BUT STARTED TO TREND DOWN AND SO FLUID BOLUS WAS GIVEN FOR BLOOD PRESSURE. PT HAD A LOW GRADCE TEMP BUT IT HAS RESOLVED AT 1830. MIDLINE INCISION DRESSING WAS CHANGED AND STILL REMAINS SATURATED. CHANGE DRESSING 4 TIMES A SHIFT.. IR TOMORROW TO PLACE ANOTHER DRAIN. INCREASED KRYSTIAN DRAIN OUTPUT THAT IS NOTED PRIOR. GOOD URNE OUTPUT. WILL CONTINUE TO MONITOR POC.
--- NOTE | 2018-09-11 18:58 | HC ---
[facility] [place] [address] CONSULTATION Name: JAMAR DAMON Room #: 246-P [facility] IN ..#: [id number] Admission: 09/05/18 Attend Phys: Teddy Yanes MD Discharge: Date of : 47 Report #: [id number] THIS REPORT FOR: //name// CC: Teddy Yanes DATE OF SERVICE: 09/10/2018 CHIEF COMPLAINT: Surgical wounds, abdominal wall. HISTORY OF PRESENT ILLNESS: This is a 73-year-old white male patient with a history of chronic partial small bowel obstructions. He underwent an exploratory laparotomy with extensive lysis of adhesions and segmental small bowel resection with stapled reanastomosis on 08/28/2018. He did well initially in the postoperative period and was transferred to acute rehab following surgery on 09/03/2018. He later developed abdominal distention and was felt to have a perforated viscus, was taken back to the operating room by Dr. Thomason on 09/06/2018. He underwent exploratory laparotomy with washout, lysis of adhesions, drainage of an anastomotic leak with a 20-Icelandic endoluminal Malecot and debridement of necrotic abdominal wall including subcutaneous tissue and fascia. I have now been asked to see him with regard to wound care. He is in ICU. He is a little bit confused. He is also accompanied by his and his daughter at the bedside. PAST MEDICAL HISTORY: Positive for healthcare-acquired pneumonia, metabolic encephalopathy, history of lung cancer and a history of acute kidney injury. The patient denies significant pain at this time. ALLERGIES: None. MEDICATIONS: Include albuterol, Intralipid, fentanyl, fluconazole, Haldol, Acidophilus, magnesium sulfate, multivitamin infusion, Zosyn, potassium, vancomycin. SOCIAL HISTORY: Positive for history of previous cigarette smoking. He is , accompanied by his . FAMILY HISTORY: Noncontributory. REVIEW OF SYSTEMS: Very, very limited as the patient is confused. He denies abdominal pain. Complains of some generalized weakness. Other systems are really not obtainable. PHYSICAL EXAMINATION: VITAL SIGNS: At this time include temperature 99.4, respiratory rate of 33, pulse rate 91, blood pressure 105/68. GENERAL: This is a chronically ill appearing male [place] [address] CONSULTATION Name: JAMAR DAMON Room #: 246-P [facility] IN ..#: [id number] Admission: 09/05/18 Attend Phys: Teddy Yanes MD Discharge: Date of : 47 Report #: [id number] minimal distress. HEENT: Head normocephalic. LUNGS: Clear. NECK: Supple. He has an NG tube in place. LUNGS: Diminished. HEART: Regular rhythm. ABDOMEN: Soft, slightly distended. He has drains to the left of the midline. The Malecot drain appears to be more in the left lower quadrant. There is a longitudinal abdominal incision line that appears to have intact fascia. The skin and subcutaneous tissue are exposed. There is good granulation tissue and does not appear to be infected. EXTREMITIES: Without clubbing or cyanosis. NEUROLOGIC: The patient is alert. He is symmetrical. He is confused. LABORATORY DATA: Sodium 134, potassium 3.7, chloride 101, CO2 of 27, BUN 19, creatinine 1.0, glucose 125. White blood cell count 7.2 with a hemoglobin of 8.1, hematocrit 24.0 and platelet count 341,000. CLINICAL IMPRESSION: 1. Surgical wound, abdominal wall. 2. Recent lysis of adhesions with small bowel resection and end-to-end anastomosis with subsequent anastomotic leak and placement of a 20-Icelandic endoluminal Malecot drain. 3. History of lung cancer. RECOMMENDATIONS: At this point in time, the patient will need aggressive nutritional support. He is on bowel rest; therefore, he will be most likely receiving TPN. We will place a wound VAC on the abdominal wall wound. Hopefully, this will close fairly quickly. The Malecot likely will need to develop a fistula tract before it can be removed. I suspect, sometime in the distant future, additional surgical intervention to take down that fistula would be appropriate. He will need frequent turning and repositioning and Prevalon boots while in bed for pressure prophylaxis as he is relatively immobile. I do appreciate being asked to see him in consultation. <ELECTRONICALLY SIGNED> By: Maycol Menjivar MD 09/11/18 1858 [id number] Maycol Menjivar MD /nt
[2018-09-12] VITALS (53 sets, daily range): BP systolic 73–121; BP diastolic 44–70
--- NOTE | 2018-09-12 04:53 | NUR ---
PT CURRENTLY RESTING COMFORTABLE IN BED. SR ON MONITOR. REMAINS ON RA SATS 96%. BP HAS BEEN SOFT THROUGHOUT SHIFT, GIVING PRN 500ML NS BOLUS TO KEEP SBP >90 HAVE BOLUSED X1 SO FAR. PT HAS HAD NO COMPLAINTS OF PAIN. PT TOLERATING MIDLINE ABD DRESSING CHANGES, HAVE CHANGED TWICE SO FAR. KRYSTIAN DRAIN (B) HAS DRAINED 500CC. AM LABS TO BE DRAWN AND REVIEWED. PLAN FOR PT TO IR TODAY.
[2018-09-12 05:51] LABS: HEMATOCRIT 23.3 % (42.0-52.0); HEMOGLOBIN 7.9 gm/dL (14.0-18.0); MCH 31.4 pg (26.0-34.0); MCHC 33.8 g/dL (28.0-37.0); MCV 92.9 fL (80.0-100.0); RBC 2.51 mil/uL (4.50-6.00); RDW 14.7 % (10.5-14.5); WBC 6.2 thou/uL (4.0-11.0)
[2018-09-12 06:01] LABS: CALCIUM 8.9 mg/dL (8.5-10.1); CREATININE 1.2 mg/dL (0.7-1.3); MAGNESIUM 2.4 mg/dL (1.8-2.4); PHOSPHORUS 3.6 mg/dL (2.5-4.9); POTASSIUM 3.8 mmol/L (3.5-5.1)
--- NOTE | 2018-09-12 08:34 | O ---
[facility] [place] [address] OPERATIVE REPORT Name: JAMAR DAMON Room #: 246-P [facility] IN M.R.#: [id number] Admission: 09/05/18 Attend Phys: Teddy Yanes MD Discharge: Date of : 47 Report #: [id number] THIS REPORT FOR: //name// CC: Teddy Yanes MD DATE OF SERVICE: 09/06/2018 SURGEON: Sourav Thomason MD FRUIT LOADER: Kirill Rincon DO. PREOPERATIVE DIAGNOSES: 1. Perforated viscus. 2. History of recent exploratory laparotomy with extensive lysis of adhesions and segmental small bowel resection for a near complete obstruction. POSTOPERATIVE DIAGNOSES: 1. Perforation at the anastomosis secondary to ischemia. 2. History of recent exploratory laparotomy with extensive lysis of adhesions and segmental small bowel resection for a near complete obstruction. PROCEDURE: 1. Exploratory laparotomy with washout. 2. Lysis of adhesions. 3. Drainage of anastomotic leak with 20-Somali endoluminal Malecot. 4. Debridement of necrotic abdominal wall including subcutaneous tissue and fascia (8 cm2). ANESTHESIA: General endotracheal anesthesia. ESTIMATED BLOOD LOSS: 50 mL. SPECIMEN: Necrotic abdominal wall. COMPLICATIONS: None appreciated. INDICATIONS FOR PROCEDURE: This is a 73-year-old male patient of Dr. Teddy Yanes, who has a history of laparoscopic sigmoid colectomy several years ago. In the early postoperative period, the patient developed pulmonary emboli, requiring therapeutic anticoagulation. This caused intra-abdominal bleeding from the raw surfaces from his operation the previous day. As a result, the patient developed a complete bowel obstruction that required exploration with lysis of adhesions and segmental small bowel resection 2-3 weeks after his laparoscopic sigmoid colectomy. The patient had done well up until recently with worsening bouts of nausea, vomiting and intolerance of oral intake. CT revealed a near complete obstruction with a trickle of contrast passing into the [facility] [address] [place] [address] OPERATIVE REPORT Name: JAMAR DAMON Room #: 246-P [facility] IN [facility].#: [id number] Admission: 09/05/18 Attend Phys: Teddy Yanes MD Discharge: Date of : 47 Report #: [id number] colon. Decision was made to perform an exploratory laparotomy with lysis of adhesions to alleviate the near complete bowel obstruction. This was undertaken on 08/28/[address] Anay Tapia. The patient was left with nearly 150 cm of small bowel. The patient was noted to have extensive dense intraabdominal adhesions. Postoperatively, the patient did well and was ultimately transferred to the acute inpatient rehabilitation floor. On 09/05/2018, the patient complained of worsening abdominal pain and distention. He was to undergo CT of the abdomen and pelvis with both oral and IV contrast down a nasogastric tube; however, the patient pulled his tube before the study, delaying his CT scan. Ultimately, the CT showed a large (12 x 25 x 35 cm) fluid collection with no extravasation of oral or IV contrast into the collection. The patient's white blood cell count was normal, and his pain was improved. His vital signs were within normal limits. After his admission to the hospital floor, he was noted to have serous drainage from his wound. The following day, the drainage quality changed to what appeared to be succus and a large amount was extending from the abdominal wound with palpation. Based on these findings, exploratory laparotomy is indicated to identify the cause of the perforated viscus. OPERATIVE FINDINGS: Upon entrance into the abdominal cavity, a large amount of succus was present. After suctioning all of the succus within the abdominal cavity and irrigating the abdomen, the opening in the small bowel was immediately seen. This was located at the medial aspect of the anastomosis. There was a clear delineation between the 2 portions of the anastomosed bowel. The more medial aspect appeared ischemic with areas of necrosis. The areas may have appeared that way secondary to staining from the succus. Only a single small opening was identified. The area of perforation was not amenable to primary suture repair, and the acute postoperative adhesions prohibited dissection without substantial risk for further injury or bowel loss. The adhesions were as expected in a postoperative day 9 abdomen, and as a result of the adhesions and inflammation secondary to the succus that had been sitting within the abdominal cavity, delineation of tissue and tissue planes was not possible. In addition, as the patient was noted to have less than 150 cm of bowel remaining within his abdominal cavity, decision was made to drain the opening with a 20-Somali Malecot drain. The tissue surrounding the opening was able to be pursestring sutured around the drain. Flushing with saline showed no leakage of saline from around the tube or elsewhere. At the conclusion of the operation, sponge, needle and instrument counts were correct. DESCRIPTION OF PROCEDURE IN DETAIL: After the risks, benefits and expectations of the operation were discussed in detail with the patient's as well as with the patient, who has been demented postoperatively, informed consent was obtained. The patient was identified in the preoperative holding area. He has been receiving scheduled IV antibiotics including vancomycin, Zosyn and Levaquin. The patient was taken to the operating room and he was placed in the supine position. SCDs were placed on the patient's bilateral lower extremities and pneumatic compression was initiated. The patient was then given IV [facility] [address] [place] [address] OPERATIVE REPORT Name: JAMAR DAMON Room #: 246-P [facility] IN [facility].#: [id number] Admission: 09/05/18 Attend Phys: Teddy Yanes MD Discharge: Date of : 47 Report #: [id number] sedation and he was intubated without incident. His abdomen was prepped and draped in standard sterile fashion. The surgical skin ryanne were removed. The wound was opened with traction down to the fascial closure. A large amount of succus was exiting from the wound, mostly at the lower aspect. The paramedian fascial closure suture was removed. The abdominal cavity was then entered. The large amount of succus within the abdominal cavity was then suctioned and irrigated. After doing so, the opening as described above was identified. The opening itself was less than 5 mm, but it appeared to be associated with ischemia. His ischemic changes were felt to be secondary to radiation changes. The bowel was thickened and tissue planes were not discernible secondary to recent surgery. There were some acute surgical adhesions around the opening that were carefully taken down so as not to further disrupt the bowel. The anastomosis appeared otherwise intact. The tissue around the opening was not amenable to primary repair. Decision was made for drainage of the opening with a 20-Somali Malecot. This was placed endoluminally. A 3-0 PDS pursestring suture was placed around the tube. A leak test was then performed with saline with no extravasation of saline from around the tube or elsewhere. 20 mL of Tisseel was then applied to the tissue around the Malecot drain as well as on the area of the anastomosis and small areas of potential necrosis. The tissue around these areas was not amenable to suture repair without risk of further damage due to the postoperative tissue quality. The abdominal cavity had been copiously irrigated with 5 liters of normal saline and return of all drainage ran clear prior to applying the Tisseel. The Malecot drain was brought out of the abdominal cavity through a stab wound in the left abdomen. 19-Somali KRYSTIAN drains were placed above and below the repair, brought out through stab wounds in the left abdomen as well. Necrotic abdominal wall tissue including subcutaneous tissue and fascia was seen along the length of the incision. This was trimmed away sharply down to healthy-appearing, bleeding tissue. The right paramedian abdominal wall fascia was then closed with a running looped #1 PDS suture. The subcutaneous tissue was irrigated and bleeding points were made hemostatic with electrocautery. A normal saline wet-to-dry Kerlix dressing was packed within the abdominal wound. 4 x 4s, ABD pads, and tape were then applied. An abdominal binder was also placed. The patient tolerated the procedure well. He was awakened, extubated and taken to the recovery room in stable condition with no apparent intraoperative complications. <ELECTRONICALLY SIGNED> By: Sourav Thomason MD, FACS 09/12/18 0834 [id number] Sourav Thomason MD, FACS /nt
--- NOTE | 2018-09-12 09:12 | NUR ---
WOUND CONSULT: PT. WAS SEEN ON 09/11/[address] MYRICK AND MYSELF. WOUND CARE WAS GOING TO APPLY A WOUND VAC AT THIS TIME TO HIS MIDLINE SURGICAL INCISON. UPON EXAMINATION HE HAD MODERATE AMOUNTS OF GREEN DRAINAGE FROM THE DISTAL PORTION OF THE INCISION. DR. LANGE WAS NOTIFED. WE WILL RE-ASSESS WHEN WOUND VAC PLACEMENT WILL BE APPROPERATE. RECOMMENDATIONS: WET TO DRY DRESSINGS 3-4X PER DAY PT. AND STAFF NURSE WERE INSTRUCTED ON PLAN OF CARE.
--- NOTE | 2018-09-12 10:23 | NUR ---
ASSUMED CARE AT 0700. PT HAS THREE DRAINS TO L ABDOMINAL QUAD REGION. KRYSTIAN DRAIN B IS HAVING LARGE AMOUNTS OF GREEN DRAINAGE. AT 0800 250CC WERE EMPTIED AND AT 1000 200CC WERE DRAINED. DRESSING CHANGE WAS PERFORMED BY PRIOR SHIFT AT 0600 AND AGAIN AT 1000 THIS SHIFT. WOUND IS PACKED WITH NS SOAKED KERLIX. WHEN KERLIX WAS REMOVED DISTAL END OF INCISION HAS DARK GREEN DRAINAGE POOLING. WOUND WAS REDRESSED WET TO DRY WITH PACKED KERLIX ABD AND FOAM TAPE APPLIED ORDERED BY WOUND CARE. WILL CONTINUE TO KEEP A CLOSE EYE ON DRESSING AND MONITOR AND CHANGE WHEN SOILED.
--- NOTE | 2018-09-12 14:29 | NUR ---
WOUND FOLLOW UP: PT. WAS SEEN TODAY BY DR. MYRICK AND MYSELF. PT. IS STILL HAVING LARGE AMOUNTS OF GREEN BILE OUT OF HIS MIDLINE INCSION. AT THIS TIME WE ARE STILL AWAITING FOR AN INTERVENTION TO TAKE PLACE PRIOR TO STARTING THE WOUND VAC. RECOMMENDATIONS: CONTINUE WITH CURRENT PLAN OF CARE. PT. AND STAFF NURSE WERE INSTRUCTED ON PLAN OF CARE.
--- NOTE | 2018-09-12 15:32 | NUR ---
1530 PT TO IR FOR DRAIN PLACEMENT.
[2018-09-13] VITALS (44 sets, daily range): BP systolic 88–121; BP diastolic 50–77
[2018-09-13 06:00] LABS: HEMATOCRIT 24.8 % (42.0-52.0); HEMOGLOBIN 8.4 gm/dL (14.0-18.0); MCH 31.5 pg (26.0-34.0); MCHC 33.9 g/dL (28.0-37.0); RBC 2.67 mil/uL (4.50-6.00); RDW 14.8 % (10.5-14.5)
[2018-09-13 06:08] LABS: CALCIUM 9.2 mg/dL (8.5-10.1); CREATININE 1.1 mg/dL (0.7-1.3); POTASSIUM 4.2 mmol/L (3.5-5.1)
--- NOTE | 2018-09-13 07:23 | NUR ---
PT HAS BEEN ORIENTED TO SELF AND PLACE BUT CONFUSED ALL NIGHT, AT TIMES RESTLESS PICKING AT CORDS AND LINES, HALDOL GIVEN PRN, RESTRAINTS MAINTAINED , AND NEW ORDER THIS AM. VITAL WNL, LEVOPHED DRIP TURNED OFF @0330 PT MAINTAINING MAP >60. ABD DRESSING AND DRAINS INTACT, OUTPUT DOCUMENTED. TPN INFUSING, NEGRON WITH ADEQUATE OUTPUT.
--- NOTE | 2018-09-13 07:49 | NUR ---
ASSESS PT WITH DR. MATHIS AND INSTRUCTED TO KEEP PT IN ICU WHILE IN RESTRAINTS. ONCE PT IS OFF RESTRAINTS AND NOT COLIN AT LINES AND DRAINS MAY GOTO FLOOR.
--- NOTE | 2018-09-13 09:10 | NUR ---
ALLOWED FAMILY TO COMPLETE ORAL CARE PER THEIR REQUEST.
--- NOTE | 2018-09-13 10:04 | NUR ---
CALLED [facility] TO INFORM THAT DR IS PLACING ORDER TO WITHDRAW CARE.
--- NOTE | 2018-09-13 10:05 | NUR ---
CALLED [facility] TO INFORM THAT DR. NARAYAN HAS TALKED TO FAMILY AND IS PLACING ORDER TO WITHDRAW CARE.
--- NOTE | 2018-09-13 15:07 | NUR ---
WOUN VAC PLCED MID ABDOMEN AND DRESSINGS CHANGED BY WOUND CARE TEAM TODAY. WILL CONTINUE TO ASSESS.
--- NOTE | 2018-09-13 16:49 | NUR ---
WOUND FOLLOW UP: PT. WAS SEEN TODAY BY DR. MYRICK AND MYSELF. PT. HAD ANOTHER DRAIN PLACED YESTERDAY IN IR AND SO, THE WOUND VAC WAS STARTED TODAY TO HIS MIDLINE ABDOMEN. PT. TOLERATED PROCEDURE WELL. RECOMMENDATIONS: CONTINUE WITH CURRENT PLAN OF CARE. PT. AND STAFF NURSE WERE INSTRUCTED ON PLAN OF CARE.
--- NOTE | 2018-09-13 19:10 | NUR ---
YUSUF REPORT GIVEN TO BRAYDON PENDLETON.
[2018-09-14] VITALS (24 sets, daily range): BP systolic 86–106; BP diastolic 49–62
[2018-09-14 05:17] LABS: HEMATOCRIT 25.8 % (42.0-52.0); HEMOGLOBIN 8.8 gm/dL (14.0-18.0); MCH 32.1 pg (26.0-34.0); MCHC 34.2 g/dL (28.0-37.0); MCV 94.1 fL (80.0-100.0); RBC 2.74 mil/uL (4.50-6.00); RDW 14.5 % (10.5-14.5); WBC 7.6 thou/uL (4.0-11.0)
[2018-09-14 05:31] LABS: ALBUMIN 1.7 g/dL (3.4-5.0); CALCIUM 9.6 mg/dL (8.5-10.1); CREATININE 1.2 mg/dL (0.7-1.3); MAGNESIUM 2.5 mg/dL (1.8-2.4); PHOSPHORUS 3.9 mg/dL (2.5-4.9); POTASSIUM 4.4 mmol/L (3.5-5.1); TOTAL BILIRUBIN 1.9 mg/dL (<0.1-1.0)
--- NOTE | 2018-09-14 06:21 | NUR ---
Pt remains stable in this shift. He slept well after receiving pain med last night.he is continue to be on restraint due to pulling lines and confusion. No s/sx of any trauma from restraint indicates. He remains NPO, oral care was given frequently by this RN. NGT to LIS with bile content notes. KRYSTIAN drain on #1 and Drain #4 are continue to drain large amount of bile. He denies of N/V. He has very little bowelsound. Wound vac remains inplaced and function properly. Watson to DD with adequated urine output. Rhythms and VS are stable. No changes of skin from previous assessment. Continue working toward goals.
--- NOTE | 2018-09-14 16:30 | NUR ---
PATIENT REMAINS ALERT AND DROWSY WITH CONFUSION. NO AGITATION THIS SHIFT. PATIENT PLEASANT AND COOPERATIVE WITH CARES. DENIES PAIN, JUST STATES THAT HE IS UNCOMFORTABLE AT TIMES. PATIENT TURN Q2H FOR COMFORT AND PRESSURE RELIEF. ADEQUATE URINE OUTPUT NOTED. FAMILY AT BEDSIDE. NO FURTHER CONCERNS AT THIS TIME. WILL CONTINUE TO MONITOR AND CARE PER PLAN OF CARE.
[2018-09-15] VITALS (39 sets, daily range): BP systolic 87–112; BP diastolic 45–69
[2018-09-15 06:15] LABS: ALBUMIN 1.8 g/dL (3.4-5.0); CALCIUM 9.5 mg/dL (8.5-10.1); CREATININE 1.1 mg/dL (0.7-1.3); MAGNESIUM 2.3 mg/dL (1.8-2.4); PHOSPHORUS 3.8 mg/dL (2.5-4.9); POTASSIUM 4.4 mmol/L (3.5-5.1); TOTAL BILIRUBIN 1.9 mg/dL (<0.1-1.0); TOTAL PROTEIN 6.1 g/dL (6.4-8.2)
--- NOTE | 2018-09-15 07:08 | NUR ---
ASSUMED CARE 1900 09/14/18, PT ASSESSMENTS AND VSS COMPLETE PER ICU PROTOCOL. PT ABLE TO ANSWER ORIENTATION QUESTIONS BUT HE IS STILL VERY CONFUSED INTERMITTENTLY. PT ON RA SATS IN THE HIGH 90'S, SHOWS NO SIGNS OF DISTRESS. PT NPO, NG IN PLACE CONNECTED TO LIS, PT HAS [address], ALL CHARTED AND ACCOUNTED FOR, SEE PROCESS INTERVENTION, BS STABLE. NEGRON IN PLACE, GOP NOTED. PT STILL IN RESTRAINTS BECAUSE HE CONSTANTLY PICK AT THE DRAINS. FALL PRECAUTIONS IN PLACE, PLAN OF CARE- CONT TO TATYANA.
--- NOTE | 2018-09-15 16:53 | NUR ---
WOUND VAC CANISTER CHANGED. 500CC FULL CANISTER.
--- NOTE | 2018-09-15 19:43 | NUR ---
ASSUMED CARE AT 0700. PT ALERT TO SELF AND PLACE. PT DOES GET VERY CONFUSED WHEN HE FIRST WAKES UP OR WHEN HE GETS REALLY TIRED. PT TURNED Q2 HOURS THIS SHIFT. PT HAS MIDLINE INCISION THAT HAS WOUND VAC IN PLACE. WOUND VAC CANISTER REPLACED THIS SHIFT. SCD'S ON. ORAL CARE GIVEN. VSS. SEE ASSESSMENT.
[2018-09-16] VITALS (47 sets, daily range): BP systolic 85–109; BP diastolic 50–73
[2018-09-16 05:11] LABS: CALCIUM 10.1 mg/dL (8.5-10.1); CREATININE 1.2 mg/dL (0.7-1.3); POTASSIUM 4.6 mmol/L (3.5-5.1)
--- NOTE | 2018-09-16 05:20 | NUR ---
ASSUMED CARE @ 1900 09/15/18, PT ASSESSMENT AND VSS COMPLETE PER ICU PROTOCOL. PT ALERT TO SELF, PLACE AND SITUATION BUT STILL VERY CONFUSED. PT DENIES PAIN DURING THIS SHIFT, PT ABLE TO FOLLOW COMMANDS. PT SR-ST WITH PVC'S ON THE MONITOR, PT HAD A LOW GRADE TEMP @ 0000 99.6, COOLING MEASURE IMPLEMENTED (FAN TURNED ON, COLD TOWEL PLACED ON HEAD), 2 HRS AFTER TEMP 98.3, SCD'S IN PLACE. PT ON RA, SATS IN THE HIGH 90'S. DRAINS x4, AND WOUND VAC IN PLACE, PLEASE SEE INTERVENTIONS FOR SPECIFICS. NEGRON IN PLACE, GOP NOTED. RESTRAINTS STILL IN PLACE, PT CONTINUES TO REACH FOR DRAINS WHEN RESTRAINTS ARE TAKEN OFF, PT IS EDUCATED ABOUT THE IMPORTANCE AND THE REASONS WHY RESTRAINTS ARE STILL IN PLACE. PLAN OF CARE - CONT TO MONITOR.
--- NOTE | 2018-09-16 09:54 | HC ---
[facility] [place] [place] [address] CONSULTATION Name: JAMAR DAMON Room #: 246-P [facility] IN M.R.#: [id number] Admission: 09/05/18 Attend Phys: Teddy Yanes MD Discharge: Date of : 49 Report #: [id number] THIS REPORT FOR: //name// CC: Teddy Yanes DATE OF SERVICE: 09/07/2018 HISTORY OF PRESENT ILLNESS: This is a 73-year-old male patient who was evaluated by me for confusion. I talked to the patient's and the family and they are the one who provided most of the history. As I understand from them this patient had a lung cancer and then required chemotherapy. His memory started deteriorating. He got radiation, but no radiation to the brain was given. Problem was the short-term memory. He was still able to function. Subsequently, he had pretty significant illness and since then he has become confused and he continued to be confused here. I reviewed the records. He went to rehab and subsequently came back and had pretty significant abdominal issues. He has had an abscess removed and he continued to be confused. He has improved some, but has not improved significantly. REVIEW OF SYSTEMS: Pretty extensive in this patient. I carried out 14-point review of system, the best I can carry out from the record. This patient had 2 abdominal surgeries. He did have trouble with blood pressures going into 80s and 90s as I understand. He has pretty significant GI issues in the past and presently from the record, it looks like he has a kidney problem where his creatinine went up, but is trending down. He has pretty significant metabolic problems. This was his relevant 14-point review of systems. PAST MEDICAL HISTORY: Positive for surgery recently. FAMILY HISTORY: Unremarkable. SOCIAL HISTORY: He drinks about 2-3 alcoholic drink a day. PHYSICAL EXAMINATION: NEUROLOGIC: Indicates that the patient is alert, responsive and he could not tell me what month and what day is correctly. He did not know which hospital he is in. He was able to name the president, but not the one before him. He was able to do series of 7 reasonably well, so his formed memory looks good. Cranial nerve examination 2-12 looks mostly unremarkable. Neuromuscular examination is limited with his recent surgery. I tried to do the position sense. I do not think he understands the instruction. Strength checking, tone checking and reflexes are very difficult. There is no meningeal sign in this patient. I could not look at the fundus. RESPIRATORY: He does not appear to have marked respiratory difficulty, but he does appear to have problem there and is being followed by Pulmonary. VITAL SIGNS: His blood pressure is 106/61, his temperature is 98.3, his pulse [facility] [address] [place] [address] CONSULTATION Name: JAMAR DAMON Room #: 246-P [facility] IN .R.#: [id number] Admission: 09/05/18 Attend Phys: Teddy Yanes MD Discharge: Date of : 49 Report #: [id number] is 73. LABORATORY DATA: Indicates that he did have decreased hemoglobin. His albumin is only 1.5. IMPRESSION: It looks like this patient was developing mild cognitive impairment as indicated by his cognitive deficit before he started decompensating. His decompensation is most likely secondary to his significant metabolic problems. Unfortunately, when person has consumed the brain reserve, metabolic encephalopathy takes longer time to recover and the recovery may not be complete. We should continue supportive care in this regard. When he is stabilized, we will like to do either MRI or a CT scan to exclude any other pathology. At the same time, we will like to do an EEG in this patient. I will check back next week with him and see if he is stable enough to go down for those testing. I discussed all of it with the patient's family in detail and I will discuss with him also. He does drink 2-3 alcoholic drink a day, so I will give him one dose of thiamine. Thank you very much for this referral and we will try to arrange some workup to complete his workup, but main treatment is going to be supportive. <ELECTRONICALLY SIGNED> By: Moreno Jerry MD 09/16/18 [id number] Moreno Jerry MD /nt
--- NOTE | 2018-09-16 09:55 | EEG ---
[facility] [place] [address] ELECTROENCEPHALOGRAM Name: DAMONJAMAR Room #: 246-P ADM IN M.R.#: [id number] Admission: 09/05/18 Attend Phys: Teddy Yanes MD Discharge: Date of : 49 Report #: [id number] THIS REPORT FOR: //name// CC: Teddy Yanes DATE OF SERVICE: 09/11/2018 This patient is being evaluated for altered mental status. EEG was done by placing the electrode by standard 10-20 system of electrode placement. Both referential and sequential montages were used for recording. Background activity in this patient's EEG is about 8 Hz and 30 microvolts. He went to sleep that is associated with bilateral slowing and vertex sharp waves. Photic stimulation was unremarkable. Throughout the record, no active epileptiform activity was noticed. IMPRESSION: This is an abnormal EEG because it is intermixed with theta range slowing on both sides. That is a nonspecific abnormality, which can occur with encephalopathy, effect of psychotropic medication, etc. Clinical correlation is recommended. <ELECTRONICALLY SIGNED> By: Moreno Jerry MD 09/16/18 [id number] Moreno Jerry MD /nt
--- NOTE | 2018-09-16 14:02 | NUR ---
PATIENT REMAINS A & O X 3-4 WITH PERIODS OF CONFUSION. PLEASANT AND COOPERATIVE WITH CARES. DENIES PAIN. DENIES SOA. WOUND VAC TO 75MMHG WITH LOTS OF OUTPUT. WOUND CARE HERE TO SEE PATIENT, REMOVED WOUND VAC AND PLACED A WET TO DRY FOR NOW UNTIL SURGERY CALLS BACK. DRAINS X 4 NOTED WITH MINIMAL OUTPUT. DRAIN A HAS A HARD TIME KEEPING SUCTION. PHYSICIAN AWARE. FAMILY CALLED TO CHECK ON PATIENT. NO FURTHER CONCERNS AT THIS TIME. WILL CONTINUE TO MONITOR AND CARE PER PLAN OF CARE.
--- NOTE | 2018-09-16 15:35 | NUR ---
WOUND FOLLOW UP: PT. WAS SEEN TODAY BY DR. MYRICK AND MYSELF. PT. WOUND VAC WAS STOPED AT THIS TIME DUE TO LARGE AMOUNTS OF BILE FROM THE SITE. DR. MYRICK WANTS TO DISCUSS THIS WITH THE SURGEON BEFORE PROCEDING WITH THE WOUND VAC. RECOMMENDATIONS: WET TO DRY PRN AT THIS TIME. PT. AND STAFF NURSE WERE INSTRUCTED ON PLAN OF CARE.
[2018-09-17] VITALS (40 sets, daily range): BP systolic 81–109; BP diastolic 45–63
[2018-09-17 06:11] LABS: CALCIUM 10.3 mg/dL (8.5-10.1); CREATININE 1.1 mg/dL (0.7-1.3); MAGNESIUM 2.3 mg/dL (1.8-2.4); PHOSPHORUS 3.7 mg/dL (2.5-4.9); POTASSIUM 5.1 mmol/L (3.5-5.1); TOTAL PROTEIN 6.8 g/dL (6.4-8.2)
--- NOTE | 2018-09-17 06:33 | NUR ---
ASSUMED CARE @ 1900 09/16/18, PT ASSESSMENT AND VSS COMPLETE PER ICU PROTOCOL. PT ALERT TO SELF AND INTERMITTENTLY ALERT TO PLACE, PT SEEMS MORE CONFUSED TONIGHT, BUT STILL ABLE TO FOLLOW SIMPLE COMMANDS. PT SR-ST ON THE MONITOR, GOOD PULSES NOTED, NO EDEMA APPARENT. PT ON RA PART OF THE NIGHT AND 2L OF 02 WHILE ASLEEP, SATS IN THE HIGH 90'S. PT WOUND DRESSING CHANGED X2 DURING THE SHIFT, NO OUTPUT WAS NOTED IN ALL THE DRAINS. NEGRON IN PLACE,GOP NOTED. PT GIVEN A BATH DURING THIS SHIFT, HE TOLERATED WELL. PT STILL RESTRAINED FOR PT PROTECTION, PT EDUCATED THOROUGH OUT THE SHIFT REASONS WHY RESTRAINTS ARE BEING USES. PLAN OF CARE- CONT TO MONITOR.
--- NOTE | 2018-09-17 13:40 | NUR ---
WOUND FOLLOW UP: PT. WAS SEEN TODAY BY DR. MYRICK AND MYSELF. AFTER DR. MYRICK SPOKE WITH THE SURGEON REGARDING THE CARE OF THIS PATIENT AND THE DRAINAGE NOTED. THE WOUND VAC WAS REAPPLIED TODAY. PT. TOLERATED PROCEDURE WELL. RECOMMENDATIONS: CONTINUE WITH CURRENT PLAN OF CARE. PT. AND STAFF NURSE WERE INSTRUCTED ON PLAN OF CARE.
--- NOTE | 2018-09-17 14:56 | NUR ---
S/W PT AND IN THE ROOM TO DISCUSS TRANSFER TO LT[facility] ONCE MEDICALLY STABLE. DISCUSSED OPTIONS FOR LT[facility] AND THEY ARE INTERESTED IN [facility]. GAVE BROCHURE ON [facility] AND ENCOURAGED HER TO TOUR FACILITY [facility]. PLAN IS FOR PT TO HAVE AN ABDOMINAL CT SCAN TOMORROW. QUESTIONS ANSWERED.
--- NOTE | 2018-09-17 15:00 | NUR ---
UPDATE PROVIDED TO [facility].
--- NOTE | 2018-09-17 17:21 | NUR ---
PATIENT MORE AWAKE AND ALERT THIS AM. NOW PATIENT HAS BECOME DROWSY BUT EASY TO AROUSE. PLEASANT AND COOPERATIVE WITH CARES. NO COMPLAINTS OF PAIN. THIS AM MIDLINE ABDOMINAL INCISION WITH WET TO DRY DRESSING SATURATED. DRESSING WAS CHANGED AT 0930 AND PATIENT TOLERATED IT WELL. LARGE AMOUNTS OF GREEN BILE LIKE DRAINAGE NOTED FROM WOUND. WOUND VAC BACK IN PLACE THIS AFTERNOON, NOT HAVING MUCH OUTPUT EXPECTED, ALL 4 DRAINS INCLUDING THE MALECOT DRAIN NOT DRAINING ANY FLUIDS. FINDING COMMUNICATED TO DR LANGE AND ORDERS RECEIVED FOR CT OF ABD/PELVIS W/ CONTRAST AND 400MG OF GASTROGRAFIN THROUGH NG TUBE FOR TOMORROW. MONITOR OUTPUT OF WOUND VAC AND DRAINS. PATIENT ALSO HAS BECOME TACHYPNEIC WITH RR IN THE 40-50'S MULTIPLE TIMES TODAY. O2 SAT STABLE AT 99% ON RA. CALLED TO DR BOWEN. ORDERS RECEIVED FOR CHEST XRAY WHICH REVEALED A POSSIBLE PNEUMOTHORAX ON THE RIGHT SIDE, ALSO CALLED TO DR BOWEN. O2@2L PER DR BOWEN AND ORDERS RECEIVED FOR F/U CT CHEST IN THE AM.NO OTHER CONCERNS AT THIS TIME. WILL CONTINUE TO MONITOR AND CARE PER PLAN OF CARE.
[2018-09-18] VITALS (32 sets, daily range): BP systolic 88–107; BP diastolic 55–73
--- NOTE | 2018-09-18 03:39 | NUR ---
ASSUMED CARE OF PATIENT AROUND 1900. PATIENT DENIES PAIN, N/V, DIZZINESS. LOWER 1/3 OF INCISION TENDER W/ PALPATION. ABDOMEN REMAINS SOFT AT THIS TIME. PATIENT UNABLE TO SLEEP MOST OF NIGHT, CONFUSED, ASKING FOR DRAGAN MCCLELLAND, ASKING ABOUT EQUIPMENT THAT NEEDS TO BE PLUGGED IN, REORIENTED PATIENT AND ENCOURAGED HIM TO SLEEP. DRAINS INTACT, MINIMAL OUTPUT. WOUND VAC DRESSING INTACT, SEEMS TO HAVE GREATER OUTPUT WHEN PALPATING ABDOMEN. PATIENT IS MAKING LITTLE PROGRESS TOWARD GOALS, WILL CONTINUE TO MONITOR.
[2018-09-18 05:33] LABS: HEMATOCRIT 27.5 % (42.0-52.0); HEMOGLOBIN 8.7 gm/dL (14.0-18.0); MCH 30.1 pg (26.0-34.0); MCHC 31.5 g/dL (28.0-37.0); MCV 95.7 fL (80.0-100.0); RBC 2.87 mil/uL (4.50-6.00); RDW 14.8 % (10.5-14.5); WBC 7.4 thou/uL (4.0-11.0)
[2018-09-18 05:51] LABS: CALCIUM 10.2 mg/dL (8.5-10.1); POTASSIUM 4.9 mmol/L (3.5-5.1)
--- NOTE | 2018-09-18 16:48 | NUR ---
PATIENT HAS BEEN RESTING QUIETLY AND CALMLY. HE IS COOPERATIVE, HOWEVER QUITE IMPULSIVE. XIAO DOES PULL AT TUBES. HE IS OTHERWISE COOPERATIVE. VITAL SIGNS AND ASSESSMENTS DOCUMENTED. HE TRANSPORT TO [facility] AND TOLERATED IT WELL. HE WAS THEN BROUGHT BACK TO THE ICU. WAS UPDATED THROUGHOUT THE DAY. WOUND CARE STAFF ROUNDED AND ASSESSED SPOT ON COCCYX. PLAN OF CARE IS TO CONTINUE TO MONITOR PATIENT STATUS, VITAL SIGNS Q1HOUR, ASSESSMENTS Q2-4 HOURS, AND ATTEMPT TO INCREASE ACTIVITY.
--- NOTE | 2018-09-18 17:04 | NUR ---
WOUND FOLLOW UP: PT. WAS SEEN TODAY BY DR. MYRICK AND MYSELF. PT. WOUND VAC DRESSING IS C/D/I AT THIS TIME. STAFF NURSE NOTIFIED OF WOUND TO BOTTOM. UPON ASSESMENT DISCOVERED A ABRSIONS WOUND TO HIS LEFT BUTTOCK. THERE ARE NO SIGNS THAT THIS IS PRESSURE RELATED OR ANY SIGNS OF INFECTION. RECOMMENDATIONS: WOUND CARE TO LEFT BUTTOCK: GENTLY CLEANSE AREA WITH WOUND CLEANSER OR NORMAL SALINE, APPLY MOISTURE BARRIER CREAM, LEAVE OPEN TO AIR, COMPLETE CARES DAILY AND PRN. TURN Q2 HOURS KEEP PT. OFF WOUNDS MUCH POSSIBLE KEEP ON MARY MATRESS. CONTINUE WITH WOUND VAC TO MIDLINE INCSION PT. AND STAFF NURSE WERE INSTRUCTED ON PLAN OF CARE.
--- NOTE | 2018-09-18 17:08 | NUR ---
NURSE ADDED IN THE ENTERAL FLUSH THE CONTRAST FOR THE CT SCAN. UPON RETURN FROM THE CAT SCAN NURSE HOOKED THE NG TUBE BACK TO SUCTION AND OUTPUT NOTED. NOT SURE HOW MUCH IS RESIDUAL FROM ORAL CONTRAST OR FROM PLAIN GASTRIC CONTENTS. HOWEVER IT IS NOTED.
[2018-09-19] VITALS (38 sets, daily range): BP systolic 82–114; BP diastolic 48–74
[2018-09-19 06:59] LABS: HEMATOCRIT 27.7 % (42.0-52.0); HEMOGLOBIN 9.2 gm/dL (14.0-18.0); MCH 31.2 pg (26.0-34.0); MCHC 33.1 g/dL (28.0-37.0); MCV 94.4 fL (80.0-100.0); RBC 2.94 mil/uL (4.50-6.00); RDW 14.8 % (10.5-14.5); WBC 10.1 thou/uL (4.0-11.0)
[2018-09-19 07:10] LABS: CALCIUM 10.5 mg/dL (8.5-10.1); CREATININE 1.1 mg/dL (0.7-1.3); POTASSIUM 4.5 mmol/L (3.5-5.1)
--- NOTE | 2018-09-19 14:19 | NUR ---
WOUND FOLLOW UP: PT. WAS SEEN TODAY BY DR. MYRICK AND MYSELF. PT. HAS SOME STOOL LEAKING FROM THE DISTAL PORTION OF HIS MIDLINE INCSION. WOUND VAC DRESSING WAS REMOVED SO THAT SITE COULD BE EXAMINED. WOUND VAC DRESSING WAS REAPPLED TO THE SUPERIOR PORTION OF THE INCSION WHILE THE DISTAL PORTION WAS LEFT OPEN TO DRAIN INTO AN OSTOMY APPLIANCE. IT APPEARS THAT THE DISTAL OPENING HAS DEVELPED INTO A FISTULA AND NEEDS TO DRAIN OUTSIDE. RECOMMENDATIONS: CONTINUE WITH CURRENT PLAN OF CARE. PT. AND STAFF NURSE WERE INSTRUCTED ON PLAN OF CARE.
--- NOTE | 2018-09-19 19:15 | NUR ---
PT AWAKE, BED TURNED TO SEE THE OUTDOORS AND DAYLIGHT. REMAINED AWAKE WITH STIMULATION/CONVERSATION PROVIDED BY FAMILY. WOUND VAC LEAKED BILE/STOOL, THEN ERNESTO TERAN WOUND CARE NURSE REAPPLIED NEW WOUND VAC DRESSING AND PLACED ILEOSTOMY TYPE FLUID COLLECTION BAG IN THE LOWEST PART OF THE MIDLINE DRESSING. SCANT AMOUNT LIGHT GREEN BILE DRAINAGE PRESENT. HALDOL GIVEN FOR RESTLESSNESS, WITH THE RESTLESS DECREASING. THE PT FINALLY DOZED INTERMITTENTLY. ADEQUATE URINE OUTPUT. FAMILY MEMBER VERY EXHAUSTED, TEARFUL, ENCOURAGED HER TO GO HOME AND TAKE CARE OF HERSELF.
[2018-09-20] VITALS (26 sets, daily range): BP systolic 81–108; BP diastolic 44–64
[2018-09-20 04:54] LABS: ALBUMIN 1.7 g/dL (3.4-5.0); CALCIUM 9.8 mg/dL (8.5-10.1); CREATININE 1.1 mg/dL (0.7-1.3); MAGNESIUM 2.1 mg/dL (1.8-2.4); PHOSPHORUS 3.9 mg/dL (2.5-4.9); POTASSIUM 4.4 mmol/L (3.5-5.1); TOTAL BILIRUBIN 2.3 mg/dL (<0.1-1.0); TOTAL PROTEIN 6.1 g/dL (6.4-8.2)
--- NOTE | 2018-09-20 07:11 | NUR ---
Pt A/O x 1-2 with improved mental status. O2 2L NC. Adequate urine output. Consistent output noted in illeostomy. No output noted in drain 1 throught drain 4. No leaks noted at midline abdominal incision site. Confusion at times with attempts to pull lines and tubes. Restraints in place. Bed alarm on. Fall precautions maintained. Call light within reach. Shift change completed with incoming day-shift RN.
--- NOTE | 2018-09-20 07:51 | NUR ---
PT MORE ALERT THIS AM. ALERT TO PERSON, RECALLING HE CAME IN FOR SMALL BOWEL OBSTRUCTION SURGERY. PULLING AT RESTRAINTS LESS THAN YESTERDAY. COMPLEXION PINK, POOR DEEP COUGHS, HOWEVER ABLE TO PULL 750 ON INCENTIVE SPIROMETER X 10 THEN COUGHED UP/SUCTIONED SCANT AMOUNT CLEAR SECRETIONS. LOW MIDLINE ABDOMINAL STOMA BAG DRAINING GREEN BILE DRAINAGE. NEGRON WITH ADEQUATE URINE OUTPUT. PT PROGRESSING.
--- NOTE | 2018-09-20 10:50 | NUR ---
FOLLOWING FOR DC PLANNING. CLINICAL INFO REVIEWED. DR. MATHIS AND DR. LANGE OK WITH TRANSITION TO [facility] 09/21/18. WAL[facility] FROM [facility] HAS BEEN FOLLOWING AND CONFIRMS PRIVATE ROOM CLOSE TO NURSING STATION FOR PT. SPOKE WITH DRAGAN MARISOL BY PHONE TO UPDATE. MRS DAMON AGREEABLE TO PLAN FOR DC TO [facility] 09/21/18. SHE WOULD LIKE TO BE HERE PRIOR TO TRANSFER TOMORROW AND PT'S BROTHER FLYING IN FROM [place] LATER TODAY.
--- NOTE | 2018-09-20 11:00 | NUR ---
PHYSICAL THERAPY PRESENT, PT STOOD AT BEDSIDE WITH THEIR ASSISTANCE. WELL TOLERATED.
--- NOTE | 2018-09-20 17:41 | NUR ---
WOUND FOLLOW UP: PT. WAS SEEN TODAY BY DR. MYRICK AND MYSELF. PT. APPLIANCE WERE CHANGED OUT TODAY. PT. TOLERATED PROCEDURE WELL. RECOMMENDATIONS: CONTINUE WITH CURRENT PLAN OF CARE. PT. AND STAFF NURSE WERE INSTRUCTED ON PLAN OF CARE.
--- NOTE | 2018-09-20 19:15 | NUR ---
PT RESTLESS IN AFTERNOON, TRYING TO PULL AT 02, NG TUBE. SEE MARS FOR HALDOL 1 MG ADMINISTRATION WITH PT CALMING THEN DOZED OFF TO SLEEP. PT PROGRESSING TODAY.
[2018-09-21] VITALS (14 sets, daily range): BP systolic 89–105; BP diastolic 55–70
--- NOTE | 2018-09-21 06:16 | NUR ---
Assumed care of this pt at 0200. No event tonight. He remains stable. Continue NPO. Oral care was given frequently. NGT to LIS with 200 of gastric content returned. ALl 4 drains are inplaced ,but no output in this shift. RLQ fistula drained 250 cc of bile notes. He will be transfered to [facility] facility sometime today.
[2018-09-21] MEDS ORDERED: ALBUTEROL2.5 MG/0.5 INH ×2 (08:26→12:35)
--- NOTE | 2018-09-21 10:50 | NUR ---
[facility]. DR. MATHIS AND DR. SWAN ROUNDED AND CONFIRM PLAN TO TRANSFER. AND PT'S BROTHER PRESENT PROVIDING SUPPORT TO PT. ALERT TO PERSON, CALM, COOPERATIVE, DENIES ANY DISCOMFORT, SR, 2L/NC, PULLING 1,000CC ON INCENTIVE SPIROMETER, NPO, SPONTANEOUSLY PT USING SWABS TO MOISTEN HIS MOUTH, NO DRAINAGE TO DRAINS ON L ABDOMEN, BILE DRAINAGE FROM STOMA BAG PLACED AT LOWER PART OF MIDLINE ABD INCISION, MIDLINE INCISION WOUND VAC INTACT, NEGRON INTACT WITH ADEQUATE URINE OUTPUT.
[2018-09-21] MEDS ORDERED: MEROPENEM500 MG IV (12:30)
[2018-09-21] MEDS ORDERED: DIFLUCAN IV (12:32)
--- NOTE | 2018-09-21 13:00 | NUR ---
DISCHARGE, TRANSFER TO [facility] CONFIRMED BY DR. BOWEN. REPORT GIVEN TO MANASA ARAMBULA, RN AT [facility]. FAXED DISCHARGE INSTRUCTIONS TO [facility] AT [facility]. NON-EMERGENT AMBULANCE TRANSPORTATION SET FOR ARRIVAL AT 1:45PM. LEG BAG APPLIED TO L DRAIN, PORTACATH FLUSHED WITH NS 10CC, THEN HEPARIN AND HEPLOCKED WITH PORTACATH NEEDLE IN PLACE.
--- NOTE | 2018-09-21 13:45 | NUR ---
PT TRANSFERRED ON CART PER [facility] TO [facility] ON 2L/NC, NG IN R NARE, WITH FOUR DRAINS IN L ABD, ABDOMINAL INCISION WITH MIDLINE WOUND VAC AND STOMA BAG INTACT. WOUND VAC EQUIPMENT/MACHINE REMAINED INTACT AND ACCOMPANIED PT. AND PT'S BROTHER PRESENT DURING TRANSFER PROCESS. COPY OF CHART, PHYSICIAN CERTIFICATION STATEMENT AND FACE SHEET.
== END 2018-09-21 13:45 | DRG 856 ==
LOC: 3W 15:03 → ICU 16:13
PROVIDERS: Internal Medicine Pulmonary Disease; Psychiatry & Neurology Neuromuscular Medicine; Specialist; Surgery; ADMIT Family Medicine
PROC: 0JB80ZZ Excision of Abdomen Subcutaneous Tissue and Fascia, Open Approach (ICD-10-PCS; principal; 2018-09-05)
PROC: 0DNW0ZZ Release Peritoneum, Open Approach (ICD-10-PCS; principal; 2018-09-05)
PROC: 0W9F0ZZ Drainage of Abdominal Wall, Open Approach (ICD-10-PCS; principal; 2018-09-05)
PROC: 30233N1 Transfusion of Nonautologous Red Blood Cells into Peripheral Vein, Percutaneous Approach (ICD-10-PCS; 2018-09-06)
PROC: 0W993ZZ Drainage of Right Pleural Cavity, Percutaneous Approach (ICD-10-PCS; 2018-09-07)
PROC: 0D9670Z Drainage of Stomach with Drainage Device, Via Natural or Artificial Opening (ICD-10-PCS; 2018-09-07)
PROC: 0W9G30Z Drainage of Peritoneal Cavity with Drainage Device, Percutaneous Approach (ICD-10-PCS; 2018-09-12)
DX: T81.43XA Infection following a procedure, organ and space surgical site, initial encounter (principal); K63.1 Perforation of intestine (nontraumatic); G93.41 Metabolic encephalopathy; K65.9 Peritonitis, unspecified; E43 Unspecified severe protein-calorie malnutrition; A41.9 Sepsis, unspecified organism; R65.20 Severe sepsis without septic shock; J96.01 Acute respiratory failure with hypoxia; J69.0 Pneumonitis due to inhalation of food and vomit; T81.32XA Disruption of internal operation (surgical) wound, not elsewhere classified, initial encounter; N17.9 Acute kidney failure, unspecified; J98.11 Atelectasis; J90 Pleural effusion, not elsewhere classified; E87.2 Acidosis; K56.52 Intestinal adhesions [bands] with complete obstruction; L02.211 Cutaneous abscess of abdominal wall; F05 Delirium due to known physiological condition; K63.2 Fistula of intestine; D64.9 Anemia, unspecified; T81.44XA Sepsis following a procedure, initial encounter; I10 Essential (primary) hypertension; G47.33 Obstructive sleep apnea (adult) (pediatric); F41.9 Anxiety disorder, unspecified; E11.9 Type 2 diabetes mellitus without complications; Y95 Nosocomial condition; Y83.8 Other surgical procedures as the cause of abnormal reaction of the patient, or of later complication, without mention of misadventure at the time of the procedure; Y92.89 Other specified places as the place of occurrence of the external cause; Z68.20 Body mass index [BMI] 20.0-20.9, adult; Z85.118 Personal history of other malignant neoplasm of bronchus and lung; Z86.711 Personal history of pulmonary embolism; Z90.49 Acquired absence of other specified parts of digestive tract; Z92.21 Personal history of antineoplastic chemotherapy; Z92.3 Personal history of irradiation; Z87.891 Personal history of nicotine dependence; Z86.14 Personal history of Methicillin resistant Staphylococcus aureus infection; Z79.899 Other long term (current) drug therapy
CPT/HCPCS: 10078; 10203; 10879; 50010; 50101; 50386; 50455; 51437; 53040; 56525; 56527; 56530; 57092; 57103; 62110; 62900; 65020; 65040; 70005

== ENCOUNTER → 2018-10-03 | Outpatient (CLI) | payer OTHER, BC ==
[~2018-10-03] VITALS: Ht 180.3 cm; Wt 71.2 kg
[~2018-10-03] MED LIST changes: +DIFLUCAN IV; +MEROPENEM500 MG IV; +SENNA8.6 MG PO; +TYLENOL EXTRA500 MG PO
[2018-10-03 11:52] VITALS: BP 95/62
--- NOTE | 2018-10-03 13:55 | NUR ---
PT IN FOR DRAIN CHECK, CT COMPLETED, NO CHANGE IN THE DRAIN PER DR. ERAZO. PT WILL F/U 10/15 FOR DRAIN CHECK
--- NOTE | 2018-10-03 15:21 | NUR ---
Confirmed with Dr Epstein that no further catscan is needed to check for drain placement. Report called to [facility] and patient transferred via [facility] transport services. at bedside at time of transfer. No drains removed per Dr. Epstein verbal order.
== END ==
LOC: SPEC 11:42
DX: T81.43XD Infection following a procedure, organ and space surgical site, subsequent encounter (principal); K80.20 Calculus of gallbladder without cholecystitis without obstruction; K65.1 Peritoneal abscess; J18.9 Pneumonia, unspecified organism; J91.8 Pleural effusion in other conditions classified elsewhere; C34.90 Malignant neoplasm of unspecified part of unspecified bronchus or lung; J98.11 Atelectasis; D64.9 Anemia, unspecified; E11.9 Type 2 diabetes mellitus without complications; G93.40 Encephalopathy, unspecified; Z98.890 Other specified postprocedural states; Z79.2 Long term (current) use of antibiotics; Y83.2 Surgical operation with anastomosis, bypass or graft as the cause of abnormal reaction of the patient, or of later complication, without mention of misadventure at the time of the procedure